=== PATIENT | female | born 1945 | race Caucasian/White ===

== ENCOUNTER 2023-09-09 14:54 | Outpatient (REF) | payer MEDICARE, OTHER, SELFPAY ==
--- NOTE | ~2023-09-09 | XR_ITS ---
EXAMINATION: XR HAND/WRIST, LEFT CLINICAL INFORMATION: Hand pain unspecified COMPARISON: None TECHNIQUE: PA, lateral, and oblique views of the left hand and wrist. FINDINGS: Moderate degenerative change at the first CMC. Carpal alignment normal. MCP joints intact. Mild degenerative changes second and third DIP joints. No fracture, dislocation or destructive process. XR/XR hand wrist LT IMPRESSION: Degenerative changes noted.
--- NOTE | ~2023-09-09 | XR_ITS ---
EXAMINATION: XR HAND/WRIST, RIGHT CLINICAL INFORMATION: Unspecified pain right hand COMPARISON: None TECHNIQUE: PA, lateral, and oblique views of the right hand and wrist. FINDINGS: There is moderate degenerative change observed at the first CMC joint. Carpal alignment preserved. No fracture, dislocation or destructive process. Mild degenerative change seen in the second and third DIP joints. MCP joints preserved. XR/XR hand wrist RT IMPRESSION: Degenerative change noted. No acute findings.
[2023-09-09 16:20] LABS: MANUAL DIFF FLAG NO
[2023-09-09 16:36] LABS: Basophils Absolute Auto 0.1 X10*3/uL (0.0-0.2); Eosinophils Absolute Auto 0.1 X10*3/uL (0.0-0.4); Eosinophils Percent Auto 0.9 % (0-4); Hemoglobin 13.1 g/dl (12.0-16.0); Imm Gran Abs Auto 0.09 X10*3/uL (0.00-0.03); Imm Gran Pct Auto 1.1 % (0.0-0.4); Lymphocytes Absolute Auto 1.9 X10*3/uL (1.2-4.9); Lymphocytes Percent Auto 23.7 % (20-40); Mean Corpuscular HGB Conc 34.5 g/dl (31.0-35.0); Mean Corpuscular Hemoglobin 31.8 pg (27.0-33.0); Mean Corpuscular Volume 92.2 fL (80.0-98.0); Mean Platelet Volume 8.9 fL (9.4-12.3); Monocytes Absolute Auto 0.5 X10*3/uL (0.1-1.2); Monocytes Percent Auto 6.1 % (2-11); Neutrophils Absolute Auto 5.4 x10*3/uL (2.0-8.3); Neutrophils Percent Auto 67.2 % (45-73); Platelet Count 239 X10*3/uL (160-400); Red Blood Count 4.12 X10*6/uL (4.20-5.50); Red Cell Distribution Width 13.1 % (11.0-16.0); White Blood Count 8.1 X10*3/uL (4.8-10.8)
[2023-09-09 17:01] LABS: Rheumatoid Factor < 13.0 IU/mL (<15.0)
[2023-09-09 17:03] LABS: Alanine Aminotransferase 16 U/L (0-31); Albumin Level 4.5 g/dL (3.5-5.0); Alkaline Phosphatase 61 U/L (39-117); Anion Gap 15 (12-20); Aspartate Amino Transferase 17 U/L (5-31); Bilirubin Total 1.3 mg/dL (0.0-1.0); Blood Urea Nitrogen 17 mg/dL (9-16); Calcium 10.3 mg/dL (8.4-10.2); Carbon Dioxide 26 mmol/L (22-29); Chloride 105 mmol/L (96-108); Estimated Glomerular Filt Rate > 60; Glucose Random 109 mg/dL (60-115); Potassium 3.9 mmol/L (3.3-5.1); Sodium 142 mmol/L (135-145); Total Protein 7.6 g/dL (6.5-8.0)
[2023-09-09 17:25] LABS: Erythrocyte Sedimentation Rate 22 MM/HR (0-20)
[2023-09-09 18:14] LABS: Appearance Urine Clear; Color Urine Yellow; Glucose Urine UA Negative (Negative); Leukocyte Esterase Urine Trace (Negative); Nitrite Urine Negative (Negative); UMIC TRIGGER UA YES; Urine Blood Negative (Negative); Urine Ketones Negative (Negative); Urine Protein Negative (Neg-Trace)
[2023-09-09 18:20] LABS: Bacteria Urine None Seen (None Seen); Hyaline Casts Urine 0-2 /LPF (0-2); RBC Urine 0-2 /HPF (0-2); Squamous Epithelial Cell Urine 0-2 /HPF (0-2); WBC Urine 0-5 /HPF (0-5)
[2023-09-09 18:36] LABS: Total Protein Urine Random < 7 mg/dL (<12)
[2023-09-10 09:13] LABS: HBc Num1 0.06 S/CO (0.00-0.79); Hepatitis A Antibody IgM 0.16 Index (0-0.79); Hepatitis B Core Antibody Nonreactive (Nonreactive); Hepatitis B Surface Antigen Negative (Negative); ~HepC Num1 0.07 S/CO (0.00-0.79); ~Hepatitis A Antibody IgM Nonreactive (Nonreactive); ~Hepatitis B Surface Antibody NONREACTIVE (Nonreactive); ~Hepatitis C Antibody Nonreactive (Nonreactive)
[2023-09-10 13:43] LABS: IgA 206 mg/dL (70-320); IgG 810 mg/dL (600-1540); IgM 65 mg/dL (50-300)
[2023-09-10 13:52] LABS: Cyclic Citrullinated Peptide <16 UNITS
[2023-09-10 16:19] LABS: Complement C3 144 mg/dL (83-193)
[2023-09-10 20:48] LABS: Anti DNA DS Antibody 1 IU/mL; Antibody to SS-A Antigen <1.0 NEG AI (<1.0 NEG); Antibody to SS-B Antigen <1.0 NEG AI (<1.0 NEG); Myeloperoxidase Antibody <1.0 AI; Proteinase 3 PR3 Antibodies <1.0 AI; SM/Ribonucleoprotein Ab <1.0 NEG AI (<1.0 NEG); Smith Protein <1.0 NEG AI (<1.0 NEG)
[2023-09-10 21:03] LABS: Prot Elec - Albumin 4.2 g/dL (3.8-4.8); Prot Elec - Alpha1 0.4 g/dL (0.2-0.3); Prot Elec - Alpha2 0.7 g/dL (0.5-0.9); Prot Elec - Beta 1 0.5 g/dL (0.4-0.6); Prot Elec - Beta 2 0.4 g/dL (0.2-0.5); Prot Elec - Gamma 0.7 g/dL (0.8-1.7); Prot Elec - Total Protein 6.8 g/dL (6.1-8.1)
[2023-09-12 05:33] LABS: TS Negative Control Passed; TS Panel A 0; TS Panel B 0; TS Positive Control Passed; TSpotTB Negative (Negative)
[2023-09-14 15:03] LABS: DNAds, Crithidia Antibody Negative (Negative)
[2023-09-15 11:23] LABS: Anti Nuclear Antibody Screen POSITIVE (NEGATIVE)
[2023-09-15 11:24] LABS: Anti Nuclear Antibody Pattern Nuclear, Homogeneous
== END 2023-09-09 14:55 | disposition home or self-care (01) ==
LOC: HO.LAB 14:54
PROVIDERS: PCP Family Medicine; Visit Provider Student in an Organized Health Care Education/Training Program
DX: Z11.59 Encounter for screening for other viral diseases (principal); Z11.7 Encounter for testing for latent tuberculosis infection; I77.6 Arteritis, unspecified; M32.9 Systemic lupus erythematosus, unspecified; M06.9 Rheumatoid arthritis, unspecified; M35.3 Polymyalgia rheumatica; Z72.89 Other problems related to lifestyle
CPT/HCPCS: 36415; 73110; 73130; 80053; 81001; 82550; 82570; 82784; 84156; 84165; 85025; 85652; 86021; 86038; 86039; 86140; 86160; 86200; 86225; 86235; 86255; 86334; 86431; 86481; 86704; 86706; 86709; 86803; 87340; 99202

== ENCOUNTER 2023-09-09 14:54 | Outpatient (AMB) | payer MEDICARE, OTHER, SELFPAY ==
--- NOTE | 2023-09-09 15:02 | A.OFFVIS_ITS ---
Intake Vital Signs 09/09/23 15:06 Height 5 ft 4 in Weight 166 lb 0.129 oz BMI 28.5 BP 124/80 Blood Pressure Location Rt brachial Position Sitting Pulse 75 Pulse Source Pulse Oximeter Intake Visit Reasons: PMR Intake Note: New pt presents today for PMR consult, referred by PCP Dean Osei. C/o pain in multiple areas. Pain started at the end of June. She was seen at the emergency room [facility] in [place]. She was started on taper and is now on 10mg daily and states it is not doing much for her pain. Campus Ambassador Required: No Accompanied by: Self / Same As Patient Allergies penicillin G Allergy (Unknown, Verified 09/09/23 15:10) Hives seafood Allergy (Unknown, Verified 09/09/23 15:10) Unknown shellfish derived Allergy (Unknown, Verified 09/09/23 15:10) swelling,itch vancomycin Allergy (Unknown, Verified 09/09/23 15:10) facial redness Medication List - Last Reconciled 09/09/23 by Carter Morelos MD metformin 500 mg PO BID olmesartan 40 mg PO DAILY prednisone 10 mg PO DAILY rosuvastatin 10 mg PO BEDTIME HPI HPI Comments History of Present Illness Details This is a 78-year-old female who presents for evaluation of PMR. Towards the end of June of 2023 patient was in [place]. She felt abrupt onset of neck stiffness as well as bilateral shoulder and thigh stiffness. She could barely lift her hands above her waist. She went to the emergency room in [place], she was found to have mildly elevated CRP. Urinalysis was suggestive of a UTI and she was discharged on antibiotics for UTI and short prednisone taper. She stated that she felt great after taking the prednisone. Her symptoms recurred a few weeks later and she went to the emergency room and at that time she was given a higher dose and longer course of prednisone. Prednisone ran out for about a week until she was evaluated by her PCP 2 days ago and started on prednisone 10 mg daily for presumed PMR. Currently she is feeling well but continues to have bilateral shoulder stiffness. She has generalized morning stiffness lasting 1 hour improved with walking around. She denies any joint swelling. Denies any headaches, jaw claudication, blurry vision. Denies any skin rashes. Denies any weight loss or fevers. She is anjali ahmadi of any family history of an autoimmune rheumatic disease. [facility] Medical History Tenosynovitis of hand Myalgia Impaired fasting glucose Hyperlipidemia, unspecified Hx: UTI (urinary tract infection) Hx of pulmonary valve stenosis Glaucoma Gilbert syndrome Fracture of toe of left foot Type 2 diabetes mellitus without complication Benign essential hypertension Atypical ductal hyperplasia of right breast Surgical History Hx of cholecystectomy H/O: hysterectomy History of colonoscopy Family History Mother Coronary artery disease Father Cancer of lung Social History Household Members: Spouse Alcohol intake: current Alcohol intake frequency: holidays/special occasions only Patient Tobacco Use Status: Former Tobacco user Quit Date: before 1979 e-Cigarette/Vaping Use: Never Used Female Reproductive History Menstrual Total pregnancies: 3 Number of Living Children: 3 Ab induced: 0 Ab spontaneous: 0 Review of Systems Const Denies fever(s), Denies headache(s), Reports weakness and Denies weight loss Eyes Denies blurry vision ENT Denies headache(s) Card Reports no additional complaints Resp Reports no additional complaints GI Denies abdominal pain Musc Reports arthralgias, Reports limited range of motion and Reports stiffness Neuro Denies headache(s) and Reports weakness Physical Exam Vital Signs: Last Vital Signs Pulse 75 09/09/23 15:06 BP 124/80 09/09/23 15:06 BMI result Body Mass Index 28.5 Const General: cooperative, healthy appearing and comfortable Nutritional Appearance: overweight Orientation/consciousness: patient oriented x3 Limitations: no limitations HEENT Head: Yes normocephalic and Yes atraumatic Mouth: moist mucous membranes Resp Effort & Inspection: normal respiratory effort and able to speak in complete sentences Auscultation: clear to auscultation bilaterally Cardio Rate: regular rate GI Inspection: No distended Palpation (GI): Soft to palpation and nontender Skin General skin exam: no rashes or lesions noted Neuro General: patient oriented x3 Extrem Other: Osteoarthritic changes of both hands with no active synovitis Pain and stiffness with shoulder abduction, more pronounced on the right Positive empty can test on the right Negative Speed's test on the right Positive lift-off test on the right Negative infraspinatus test bilaterally Normal nailfold capillaroscopy Right buttock uncomfortable with right hip manipulation No knee swelling, tenderness or pain with full flexion and extension bilaterally Results Reviewed Results Reviewed: Labs 07/2023 ESR 24 CRP 1.3 (elevated) CPK normal Assessment & Plan Assessment & Plan (1) Polymyalgia rheumatica: Code(s): M35.3 - Polymyalgia rheumatica Plan: This is a 78-year-old female who presents for evaluation of what is presumed to be polymyalgia rheumatica. Abrupt onset of neck, bilateral shoulders, bilateral hip stiffness and pain, labs showed mildly elevated CRP with normal ESR and symptoms improve with prednisone. Will order comprehensive serology to screen for any other underlying autoimmune rheumatic disease. Check bilateral shoulder x-rays. Continue with prednisone 10 mg daily Follow-up in 3 weeks Plan I spent 46 minutes reviewing patient's chart, reviewing labs from [facility], PCP chart, evaluating patient, ordering diagnostic workup, counseling patient and documenting in the chart Orders: Orders T Spot TB Today Z11.7 - Encounter for testing for latent tuberculosis infection ANCA Vasculitides Today I77.6 - Arteritis, unspecified Rheumatoid Factor Today M06.9 - Rheumatoid arthritis, unspecified Anti DNA DS Antibody Today M32.9 - Systemic lupus erythematosus, unspecified Complement C3 Today M32.9 - Systemic lupus erythematosus, unspecified Complement C4 Today M32.9 - Systemic lupus erythematosus, unspecified Sjogren's Antibodies Today M32.9 - Systemic lupus erythematosus, unspecified DNA Double Stranded-Crithidia Today M32.9 - Systemic lupus erythematosus, unspecified Complete Blood Count Auto Diff Today I77.6 - Arteritis, unspecified Comprehensive Met. Panel Today I77.6 - Arteritis, unspecified C Reactive Protein Today I77.6 - Arteritis, unspecified Erythrocyte Sedimentation Rate Today I77.6 - Arteritis, unspecified Hepatitis A,B,C Profile Today Z11.59 - Encounter for screening for other viral diseases Immunofixation Pnl, Serum Today I77.6 - Arteritis, unspecified Protein Electrophoresis, Serum Today I77.6 - Arteritis, unspecified Creatine Kinase Total Today I77.6 - Arteritis, unspecified Cyclic Citrullinated Peptide Today M06.9 - Rheumatoid arthritis, unspecified ROBERT Reflex Titer and Pattern Today M32.9 - Systemic lupus erythematosus, unspecified Anti Extractable Nuclear Ag Today M32.9 - Systemic lupus erythematosus, unspecified Protein Creatinine Ratio, Ur Today M32.9 - Systemic lupus erythematosus, unspecified UA w Microscopic Today M32.9 - Systemic lupus erythematosus, unspecified XR hand wrist LT Today M25.50 - Pain in unspecified joint XR hand wrist RT Today M25.50 - Pain in unspecified joint Coding Level of Care Code New Pt Level 4 (79072) Diagnoses Polymyalgia rheumatica M35.3
[2023-09-09 15:06] VITALS: BP 124/80; PULSE 75; BMI 28.5
== END 2023-09-09 15:51 | disposition home or self-care (01) ==
PROVIDERS: PCP Family Medicine; Visit Provider Student in an Organized Health Care Education/Training Program
DX: M35.3 Polymyalgia rheumatica (principal)
CPT/HCPCS: 99204

== ENCOUNTER 2023-09-30 11:35 | Outpatient (AMB) | payer MEDICARE, OTHER, SELFPAY ==
[2023-09-30 11:36] VITALS: BP 114/68; PULSE 82; O2SAT 96; BMI 28.8
--- NOTE | 2023-09-30 11:36 | MHC.OFFVIS ---
Intake Vital Signs 09/30/23 11:36 Height 5 ft 4 in Weight 167 lb 8.821 oz BMI 28.8 BP 114/68 Blood Pressure Location Rt brachial Position Sitting Pulse 82 Pulse Source Pulse Oximeter Pulse Oximetry (%) 96 Oxygen Delivery Method Room Air Intake Visit Reasons: PMR Intake Note: Patient last seen 09/09/23 presents today for follow up and test results. Feels better with prednisone 10mg prescribed by pcp Hand Router Operator Required: No Accompanied by: Self / Same As Patient Allergies penicillin G Allergy (Unknown, Verified 09/30/23 11:40) Hives seafood Allergy (Unknown, Verified 09/30/23 11:40) Unknown shellfish derived Allergy (Unknown, Verified 09/30/23 11:40) swelling,itch vancomycin Allergy (Unknown, Verified 09/30/23 11:40) facial redness Medication List - Last Reconciled 09/30/23 by Carter Morelos MD metformin ER 500 mg PO DAILY olmesartan 40 mg PO DAILY prednisone 5 mg PO DAILY prednisone Combine with prednisone 5 mg tabs. Take 4 tabs daily for 3 weeks (total 9 mg daily) Three tabs daily for 3 weeks (total 8 mg) Two tabs daily for 3 weeks (total 7 mg) rosuvastatin 10 mg PO BEDTIME HPI HPI Comments History of Present Illness Details 78-year-old female with presumed PMR returns for follow-up. She has been on prednisone 10 mg daily for the last 2-3 weeks with significant improvement. Except for mild right shoulder pain and stiffness. She has been eating more and gained a couple of lb. She is doing well otherwise. She states that she gets intermittent pain in her right hand but no swelling. Initial history: This is a 78-year-old female who presents for evaluation of PMR. Towards the end of June of 2023 patient was in [place]. She felt abrupt onset of neck stiffness as well as bilateral shoulder and thigh stiffness. She could barely lift her hands above her waist. She went to the emergency room in [place], she was found to have mildly elevated CRP. Urinalysis was suggestive of a UTI and she was discharged on antibiotics for UTI and short prednisone taper. She stated that she felt great after taking the prednisone. Her symptoms recurred a few weeks later and she went to the emergency room and at that time she was given a higher dose and longer course of prednisone. Prednisone ran out for about a week until she was evaluated by her PCP 2 days ago and started on prednisone 10 mg daily for presumed PMR. Currently she is feeling well but continues to have bilateral shoulder stiffness. She has generalized morning stiffness lasting 1 hour improved with walking around. She denies any joint swelling. Denies any headaches, jaw claudication, blurry vision. Denies any skin rashes. Denies any weight loss or fevers. She is unaware of any family history of an autoimmune rheumatic disease. [facility] Medical History Tenosynovitis of hand Myalgia Impaired fasting glucose Hyperlipidemia, unspecified Hx: UTI (urinary tract infection) Hx of pulmonary valve stenosis Glaucoma Gilbert syndrome Fracture of toe of left foot Type 2 diabetes mellitus without complication Benign essential hypertension Atypical ductal hyperplasia of right breast Surgical History Hx of cholecystectomy H/O: hysterectomy History of colonoscopy Family History Mother Coronary artery disease Father Cancer of lung Social History Household Members: Spouse Alcohol intake: current Alcohol intake frequency: holidays/special occasions only Patient Tobacco Use Status: Former Tobacco user Quit Date: before 1979 e-Cigarette/Vaping Use: Never Used Review of Systems [facility] Reports arthralgias Physical Exam Vital Signs: Last Vital Signs Pulse 82 09/30/23 11:36 BP 114/68 09/30/23 11:36 Pulse Ox 96 09/30/23 11:36 Oxygen Delivery Method Room Air 09/30/23 11:36 BMI result Body Mass Index 28.8 Const General: cooperative, healthy appearing and comfortable Nutritional Appearance: overweight Orientation/consciousness: patient oriented x3 Limitations: no limitations HEENT Head: Yes normocephalic and Yes atraumatic Resp Effort & Inspection: normal respiratory effort and able to speak in complete sentences Cardio Rate: regular rate GI Inspection: No distended Palpation (GI): Soft to palpation and nontender Skin General skin exam: no rashes or lesions noted Neuro General: patient oriented x3 Extrem Other: Osteoarthritic changes of both hands with no active synovitis Normal range of motion of both hands, elbows and wrists without pain Normal range of motion of both shoulders without pain Negative rotator cuff provocative maneuvers bilaterally Normal nailfold capillaroscopy Results Reviewed Results Reviewed: Labs 07/2023 ESR 24 CRP 1.3 (elevated) CPK normal Assessment & Plan Assessment & Plan (1) Polymyalgia rheumatica: Code(s): M35.3 - Polymyalgia rheumatica Plan: This is a 78-year-old female who presents for evaluation of what is presumed to be polymyalgia rheumatica. Abrupt onset of neck, bilateral shoulders, bilateral hip stiffness and pain, labs showed mildly elevated CRP with normal ESR and symptoms improve with prednisone. Clinically patient's symptoms are more consistent with PMR especially with abrupt onset of bilateral shoulder stiffness and improvement with prednisone, labs showed a positive ROBERT and borderline elevated ESR and CRP. Inflammatory markers generally much more elevated at onset of PMR. Patient states that she gets intermittent right hand pain. For now we will have this as PMR however patient might evolve into seronegative RA. She is doing quite well on prednisone 10 mg daily. Will lower prednisone by 1 mg every 3 weeks. Labs before next visit in 9 weeks Plan I spent 22 minutes reviewing patient's chart, evaluating patient, ordering diagnostic workup, counseling patient and documenting in the chart Orders: Orders Complete Blood Count Auto Diff 9 Weeks M35.3 - Polymyalgia rheumatica Comprehensive Met. Panel 9 Weeks M35.3 - Polymyalgia rheumatica Erythrocyte Sedimentation Rate 9 Weeks M35.3 - Polymyalgia rheumatica C Reactive Protein 9 Weeks M35.3 - Polymyalgia rheumatica Medications: New prednisone 5 mg PO DAILY 90 tabs 0RF prednisone Combine with prednisone 5 mg tabs. Take 4 tabs daily for 3 weeks (total 9 mg daily) Three tabs daily for 3 weeks (total 8 mg) Two tabs daily for 3 weeks (total 7 mg) 189 tabs 0RF Coding Level of Care Code Est Pt Level 3 (44991) Diagnoses Polymyalgia rheumatica M35.3
== END 2023-09-30 11:58 | disposition home or self-care (01) ==
PROVIDERS: PCP Family Medicine; Visit Provider Student in an Organized Health Care Education/Training Program
DX: M35.3 Polymyalgia rheumatica (principal)
CPT/HCPCS: 99213

== ENCOUNTER → 2023-09-30 11:35 | Outpatient (BNVA) | payer MEDICARE, OTHER, SELFPAY | PROVIDERS: PCP Family Medicine; Visit Provider Student in an Organized Health Care Education/Training Program | DX: M35.3 Polymyalgia rheumatica (principal); Z79.52 Long term (current) use of systemic steroids | CPT/HCPCS: 99212 ==

== ENCOUNTER 2023-12-30 11:33 | Outpatient (AMB) | payer MEDICARE, OTHER, SELFPAY ==
--- NOTE | 2023-12-30 11:38 | A.OFFVIS_ITS ---
Vital Signs 12/30/23 11:47 Height 5 ft 4 in Weight 167 lb 12.348 oz BMI 28.8 BP 132/70 Blood Pressure Location Lt brachial Position Sitting Pulse 70 Pulse Source Pulse Oximeter Pulse Oximetry (%) 97 Oxygen Delivery Method Room Air Intake Visit Reasons: PMR/RA/CM Intake Note: Patient presents for PMR/RA. Allergies penicillin G Allergy (Unknown, Verified 12/30/23 11:46) Hives seafood Allergy (Unknown, Verified 12/30/23 11:46) Unknown shellfish derived Allergy (Unknown, Verified 12/30/23 11:46) swelling,itch vancomycin Allergy (Unknown, Verified 12/30/23 11:46) facial redness Medication List - Last Reconciled 12/30/23 by Carter Morelos MD metformin ER 500 mg PO DAILY olmesartan 40 mg PO DAILY prednisone 4 tabs daily for 2 weeks then 3 tabs daily for 2 weeks, 2 tabs daily for 2 weeks, then 1 tab daily for 2 weeks then stop rosuvastatin 10 mg PO BEDTIME HPI Comments Details: 78-year-old female with presumed PMR returns for follow-up. Has been tapering her prednisone by 1 mg every 3 weeks or so. She has been taking prednisone 5 mg daily for the last 2-3 weeks. She states that she feels very well overall with no joint pain stiffness or swelling. Steroid side effects such as hunger improved since prednisone was lowered to 5 mg Initial history: This is a 78-year-old female who presents for evaluation of PMR . Towards the end of June of 2023 patient was in [place]. She felt abrupt onset of neck stiffness as well as bilateral shoulder and thigh stiffness. She could barely lift her hands above her waist. She went to the emergency room in [place], she was found to have mildly elevated CRP. Urinalysis was suggestive of a UTI and she was discharged on antibiotics for UTI and short prednisone taper. She stated that she felt great after taking the prednisone. Her symptoms recurred a few weeks later and she went to the emergency room and at that time she was given a higher dose and longer course of prednisone. Prednisone ran out for about a week until she was evaluated by her PCP 2 days ago and started on prednisone 10 mg daily for presumed PMR. Currently she is feeling well but continues to have bilateral shoulder stiffness. She has generalized morning stiffness lasting 1 hour improved with walking around. She denies any joint swelling. Denies any headaches, jaw claudication, blurry vision. Denies any skin rashes. Denies any weight loss or fevers. She is unaware of any family history of an autoimmune rheumatic disease. [facility] Medical History Tenosynovitis of hand Myalgia Impaired fasting glucose Hyperlipidemia, unspecified Hx: UTI (urinary tract infection) Hx of pulmonary valve stenosis Glaucoma Gilbert syndrome Fracture of toe of left foot Type 2 diabetes mellitus without complication Benign essential hypertension Atypical ductal hyperplasia of right breast Surgical History Hx of cholecystectomy H/O: hysterectomy History of colonoscopy Family History Mother Coronary artery disease Father Cancer of lung Social History Household Members: Spouse Alcohol intake: current Alcohol intake frequency: holidays/special occasions only Patient Tobacco Use Status: Former Tobacco user e-Cigarette/Vaping Use: Never Used Female Reproductive History Menstrual Total pregnancies: 3 Number of Living Children: 3 Ab induced: 0 Ab spontaneous: 0 Review of Systems Musc Denies arthralgias, Denies joint swelling and Denies stiffness Physical Exam Vital Signs: Last Vital Signs Pulse 70 12/30/23 11:47 BP 132/70 12/30/23 11:47 Pulse Ox 97 12/30/23 11:47 Oxygen Delivery Method Room Air 12/30/23 11:47 BMI result Body Mass Index 28.8 Const General: cooperative, healthy appearing and comfortable Nutritional Appearance: overweight Orientation/consciousness: patient oriented x3 Limitations: no limitations HEENT Head: Yes normocephalic and Yes atraumatic Resp Effort & Inspection: normal respiratory effort and able to speak in complete sentences Cardio Rate: regular rate GI Inspection: No distended Palpation (GI): Soft to palpation and nontender Skin General skin exam: no rashes or lesions noted Neuro General: patient oriented x3 Extrem Other: Osteoarthritic changes of both hands with no active synovitis Normal range of motion of both hands, elbows and wrists without pain Normal range of motion of both shoulders without pain Negative rotator cuff provocative maneuvers bilaterally Normal nailfold capillaroscopy No hip pain with manipulation bilaterally Results Reviewed Results Reviewed: Labs 07/2023 ESR 24 CRP 1.3 (elevated) CPK normal Assessment & Plan Assessment & Plan (1) Polymyalgia rheumatica: Code(s): M35.3 - Polymyalgia rheumatica Category: Medical Plan: This is a 78-year-old female who presents for evaluation of what is presumed to be polymyalgia rheumatica. Abrupt onset of neck, bilateral shoulders, bilateral hip stiffness and pain, labs showed mildly elevated CRP with normal ESR and symptoms improve with prednisone. Clinically patient's symptoms are more consistent with PMR especially with abrupt onset of bilateral shoulder stiffness and improvement with prednisone, labs showed a positive ROBERT and borderline elevated ESR and CRP. Inflammatory markers generally much more elevated at onset of PMR. Patient states that she gets intermittent right hand pain. For now we will have this as PMR however patient might evolve into seronegative RA/UCTD She has been doing well with no recurrence of symptoms on tapering the prednisone. She is currently on 5 mg daily. Will lower prednisone by 1 mg juancarlos ry 2 weeks. Prednisone should be tapered off by next visit in 8 weeks Labs before next visit in 8 weeks Plan I spent 22 minutes reviewing patient's chart, evaluating patient, ordering diagnostic workup, counseling patient and documenting in the chart Orders: Orders Complete Blood Count Auto Diff 8 Weeks M35.3 - Polymyalgia rheumatica Comprehensive Met. Panel 8 Weeks M35.3 - Polymyalgia rheumatica C Reactive Protein 8 Weeks M35.3 - Polymyalgia rheumatica Erythrocyte Sedimentation Rate 8 Weeks M35.3 - Polymyalgia rheumatica Medications: Changed From prednisone orally; Combine with prednisone 5 mg tabs. Take 2 tabs daily for 3 weeks (total 7 mg daily) 1 tabs daily for 3 weeks (total 6 mg) then stop should be on (5 mg tab for 3 weeks) 63 tabs 0RF To prednisone 4 tabs daily for 2 weeks then 3 tabs daily for 2 weeks, 2 tabs daily for 2 weeks, then 1 tab daily for 2 weeks then stop 140 tabs 0RF Discontinued prednisone Discontinued Reason: Patient Completed Course 5 mg PO DAILY 90 tabs 0RF Coding Level of Care Code Est Pt Level 4 (45860) Diagnoses Polymyalgia rheumatica M35.3
[2023-12-30 11:47] VITALS: BP 132/70; PULSE 70; O2SAT 97; BMI 28.8
== END 2023-12-30 12:03 | disposition home or self-care (01) ==
PROVIDERS: PCP Family Medicine; Visit Provider Student in an Organized Health Care Education/Training Program
DX: M35.3 Polymyalgia rheumatica (principal)
CPT/HCPCS: 99214

== ENCOUNTER → 2023-12-30 11:33 | Outpatient (BNVA) | payer MEDICARE, OTHER, SELFPAY | PROVIDERS: PCP Family Medicine; Visit Provider Student in an Organized Health Care Education/Training Program | DX: M35.3 Polymyalgia rheumatica (principal) | CPT/HCPCS: 99212 ==

== ENCOUNTER 2024-02-24 11:57 | Outpatient (REF) | payer MEDICARE, OTHER, SELFPAY ==
[2024-02-24 14:42] LABS: MANUAL DIFF FLAG NO
[2024-02-24 14:47] LABS: Basophils Absolute Auto 0.1 X10*3/uL (0.0-0.2); Basophils Percent Auto 1.4 % (0-2); Eosinophils Absolute Auto 0.1 X10*3/uL (0.0-0.4); Hematocrit 38.1 % (37.0-47.0); Hemoglobin 12.9 g/dl (12.0-16.0); Imm Gran Abs Auto 0.03 X10*3/uL (0.00-0.03); Imm Gran Pct Auto 0.4 % (0.0-0.4); Lymphocytes Absolute Auto 2.5 X10*3/uL (1.2-4.9); Lymphocytes Percent Auto 35.6 % (20-40); Mean Corpuscular HGB Conc 33.9 g/dl (31.0-35.0); Mean Corpuscular Hemoglobin 31.5 pg (27.0-33.0); Mean Corpuscular Volume 92.9 fL (80.0-98.0); Mean Platelet Volume 9.7 fL (9.4-12.3); Monocytes Absolute Auto 0.5 X10*3/uL (0.1-1.2); Monocytes Percent Auto 7.1 % (2-11); Neutrophils Absolute Auto 3.8 x10*3/uL (2.0-8.3); Neutrophils Percent Auto 53.5 % (45-73); Platelet Count 215 X10*3/uL (160-400); Red Cell Distribution Width 12.5 % (11.0-16.0); White Blood Count 7.1 X10*3/uL (4.8-10.8)
[2024-02-24 14:55] LABS: Alanine Aminotransferase 12 U/L (0-31); Albumin Level 4.4 g/dL (3.5-5.0); Alkaline Phosphatase 46 U/L (39-117); Anion Gap 12 (12-20); Aspartate Amino Transferase 19 U/L (5-31); Bilirubin Total 1.6 mg/dL (0.0-1.0); Blood Urea Nitrogen 18 mg/dL (9-16); C Reactive Protein 0.19 mg/dL (< or = 0.50); Calcium 9.8 mg/dL (8.4-10.2); Carbon Dioxide 26 mmol/L (22-29); Chloride 107 mmol/L (96-108); Estimated Glomerular Filt Rate 59; Glucose Random 107 mg/dL (60-115); Potassium 4.2 mmol/L (3.3-5.1); Sodium 141 mmol/L (135-145); Total Protein 7.1 g/dL (6.5-8.0)
[2024-02-24 15:47] LABS: Erythrocyte Sedimentation Rate 10 MM/HR (0-20)
== END 2024-02-24 11:58 | disposition home or self-care (01) ==
LOC: HO.WFDLDS 11:57
PROVIDERS: Visit Provider Student in an Organized Health Care Education/Training Program
DX: M35.3 Polymyalgia rheumatica (principal)
CPT/HCPCS: 36415; 80053; 85025; 85652; 86140

== ENCOUNTER 2024-02-29 11:24 | Outpatient (AMB) | payer MEDICARE, OTHER, SELFPAY ==
--- NOTE | 2024-02-29 11:37 | MHC.OFFVIS ---
Vital Signs 02/29/24 11:41 Height 5 ft 4 in Weight 167 lb 12.348 oz BMI 28.8 BP 124/62 Blood Pressure Location Lt brachial Position Sitting Pulse 65 Pulse Source Pulse Oximeter Pulse Oximetry (%) 98 Oxygen Delivery Method Room Air Intake Visit Reasons: PMR/RA Intake Note: Presents for PMR/RA. Allergies penicillin G Allergy (Unknown, Verified 02/29/24 11:41) Hives seafood Allergy (Unknown, Verified 02/29/24 11:41) Unknown shellfish derived Allergy (Unknown, Verified 02/29/24 11:41) swelling,itch vancomycin Allergy (Unknown, Verified 02/29/24 11:41) facial redness Medication List - Last Reconciled 02/29/24 by Carter Morelos MD metformin ER 500 mg PO DAILY olmesartan 40 mg PO DAILY rosuvastatin 10 mg PO BEDTIME HPI Comments Details: 78-year-old female with presumed PMR returns for follow-up. She has been tapering her prednisone slowly. She has been doing very well until Wednesday. She has been taking prednisone 1 mg daily, she discontinued prednisone last Wednesday. Since then she has been having bilateral shoulder pain and stiffness, neck pain and bilateral trochanteric bursitis pain. She states that she has had bilateral trochanteric bursitis for years. She has had injections in the past. The most recent injection was about 5 years ago Initial history: This is a 78-year-old female who presents for evaluation of PMR. Towards the end of June of 2023 patient was in [place]. She felt abrupt onset of neck stiffness as well as bilateral shoulder and thigh stiffness. She could barely lift her hands above her waist. She went to the emergency room in [place], she was found to have mildly elevated CRP. Urinalysis was suggestive of a UTI and she was discharged on antibiotics for UTI and short prednisone taper. She stated that she felt great after taking the prednisone. Her symptoms recurred a few weeks later and she went to the emergency room and at that time she was given a higher dose and longer course of prednisone. Prednisone ran out for about a week until she was evaluated by her PCP 2 days ago and started on prednisone 10 mg daily for presumed PMR. Currently she is feeling well but continues to have bilateral shoulder stiffness. She has generalized morning stiffness lasting 1 hour improved with walking around. She denies any joint swelling. Denies any headaches, jaw claudication, blurry vision. Denies any skin rashes. Denies any weight loss or fevers. She is unaware of any family history of an autoimmune rheumatic disease. [facility] Medical History Tenosynovitis of hand Myalgia Impaired fasting glucose Hyperlipidemia, unspecified Hx: UTI (urinary tract infection) Hx of pulmonary valve stenosis Glaucoma Gilbert syndrome Fracture of toe of left foot Type 2 diabetes mellitus without complication Benign essential hypertension Atypical ductal hyperplasia of right breast Surgical History Hx of cholecystectomy H/O: hysterectomy History of colonoscopy Family History Mother Coronary artery disease Father Cancer of lung Social History Household Members: Spouse Alcohol intake: current Alcohol intake frequency: holidays/special occasions only Patient Tobacco Use Status: Former Tobacco user e-Cigarette/Vaping Use: Never Used Female Reproductive History Menstrual Total pregnancies: 3 Number of Living Children: 3 Ab induced: 0 Ab spontaneous: 0 Review of Systems Musc Reports arthralgias, Reports limited range of motion and Reports stiffness Physical Exam Vital Signs: Last Vital Signs Pulse 65 02/29/24 11:41 BP 124/62 02/29/24 11:41 Pulse Ox 98 02/29/24 11:41 Oxygen Delivery Method Room Air 02/29/24 11:41 BMI result Body Mass Index 28.8 Const General: cooperative, healthy appearing and comfortable Nutritional Appearance: overweight Orientation/consciousness: patient oriented x3 Limitations: no limitations HEENT Head: Yes normocephalic and Yes atraumatic Resp Effort & Inspection: normal respiratory effort and able to speak in complete sentences Cardio Rate: regular rate GI Inspection: No distended Palpation (GI): Soft to palpation and nontender Skin General skin exam: no rashes or lesions noted Neuro General: patient oriented x3 Extrem Other: Neck pain with rotation to both sides Osteoarthritic changes of both hands with no active synovitis Normal range of motion of both hands, elbows and wrists without pain Able to fully abduct her shoulders but with some stiffness towards the end Positive empty can test and Speed's test on the right Bilateral trochanteric bursa area tenderness with negative Madhu's test Normal nailfold capillaroscopy No hip pain with manipulation bilaterally Office Procedures Joint Injection/Aspiration Joint Injection/Aspiration Details: Right trochanteric bursa Left trochanteric bursa Prep: site was prepped using sterile technique and ethochloride spray was applied Injected: 40 mg of, Kenalog, with 1 mL of and 1% plain lidocaine Approach Used: other Procedure: The patient tolerated the procedure well Coding Details: With the patient's consent, the left lateral hip area was prepped with for Chloraprep. Under a topical ethyl chloride spray the tender area over the trochanteric region was injected with 40 mg of Kenalog and 1 cc of 1% lidocaine. Then the right lateral hip area was prepped with Chloraprep and alcohol. Under a topical ethyl chloride spray the tender area over the trochanteric region was injected with 40 mg of Kenalog and 2 cc of 1% lidocaine. The patient tolerated both procedures well with no apparent immediate adverse events. - Glenohumeral/Tronchanteric Bursa/Intraarticular (X2) Procedure code (CPT) selection complete ( X2 ) Results Reviewed Results Reviewed: Labs 07/2023 ESR 24 CRP 1.3 (elevated) CPK normal Assessment & Plan Assessment & Plan (1) Polymyalgia rheumatica: Code(s): M35.3 - Polymyalgia rheumatica Category: Medical Plan: This is a 78-year-old female who presents for evaluation of what is presumed to be polymyalgia rheumatica. Abrupt onset of neck, bilateral shoulders, bilateral hip stiffness and pain, labs showed mildly elevated CRP with normal ESR and symptoms improve with prednisone. Patient has been tapering down her prednisone. She was doing well on 1 mg daily, she discontinued it last Wednesday and is having a flare-up affecting her neck, shoulders and bilateral trochanteric bursae. I think her clinical picture is more clear that it is PMR. Given bilateral trochanteric bursitis, patient requesting injections today. This may also control her PMR. With patient's consent, both trochanteric bursae were injected today, if there is no improvement 2 weeks. Advised patient to call the office and we will restart prednisone at 2 mg daily and do a slower taper Labs before next visit in 3 months (2) Greater trochanteric bursitis of both hips: Code(s): M70.61 - Trochanteric bursitis, right hip; M70.62 - Trochanteric bursitis, left hip Category: Medical Plan: Injected in clinic today Plan I spent 30 minutes reviewing patient's chart, evaluating patient, ordering diagnostic workup, counseling patient and documenting in the chart Orders: Orders AMB Joint Injection/Aspiration Today M70.61 - Trochanteric bursitis, right hip, M70.62 - Trochanteric bursitis, left hip Complete Blood Count Auto Diff 3 Months M35.3 - Polymyalgia rheumatica Comprehensive Met. Panel 3 Months M35.3 - Polymyalgia rheumatica C Reactive Protein 3 Months M35.3 - Polymyalgia rheumatica Erythrocyte Sedimentation Rate 3 Months M35.3 - Polymyalgia rheumatica Coding Level of Care Code Est Pt Level 4 (14792) Diagnoses Polymyalgia rheumatica M35.3 Greater trochanteric bursitis of both hips M70.61; M70.62 CPT Codes Coding - Joint 7: 49465 - Glenohumeral/Tronchanteric Bursa/Intraarticular ([id number])
[2024-02-29 11:41] VITALS: BP 124/62; PULSE 65; O2SAT 98; BMI 28.8
== END 2024-02-29 12:29 | disposition home or self-care (01) ==
PROVIDERS: PCP Family Medicine; Visit Provider Student in an Organized Health Care Education/Training Program
DX: M35.3 Polymyalgia rheumatica (principal); M70.61 Trochanteric bursitis, right hip; M70.62 Trochanteric bursitis, left hip
CPT/HCPCS: 20610; 99214

== ENCOUNTER → 2024-02-29 11:24 | Outpatient (BNVA) | payer MEDICARE, OTHER, SELFPAY | PROVIDERS: PCP Family Medicine; Visit Provider Student in an Organized Health Care Education/Training Program | DX: M70.61 Trochanteric bursitis, right hip (principal); M70.62 Trochanteric bursitis, left hip; M35.3 Polymyalgia rheumatica | CPT/HCPCS: 20610; 99212 ==

== ENCOUNTER 2024-06-01 13:10 | Outpatient (REF) | payer MEDICARE, OTHER, SELFPAY ==
--- OUTSIDE RECORDS SUMMARY | 2024-06-01 13:12 | XMS_ITS | Continuity of Care Document ---
Author Organization [facility] Address [address] [place] [address] Phone [phone] Problems Active Problems Provider Date Thyroid nodule Armand Gutierrez M.D. Onset: Pulmonary stenosis, non-rheumatic Armand sweeney M.D. Onset: 06/18/2022 Squamous cell carcinoma Armand Gutierrez M.D. On set: 06/18/2022 Essential hypertension Armand Gutierrez M.D. Ons et: 06/18/2022 Hypercholesterolemia Armand Gutierrez M.D. Onset : 06/18/2022 Social History Type Date Description Comments Sex Unknown Lives With Spouse ETOH Use Rarely consumes alcohol Tobacco Use Start: Unknown End: Unknown Patient is a former smoker Quit 1970s Allergies and adverse reactions Active Allergies Criticality Reaction Severity Comments Date Shellfish-Derived Products Unable to assess criticality 06/18/2022 Vancomycin Unable to assess criticality 06/18/2022 Penicillin Unable to assess criticality 06/18/2022 Medications Active Medications SIG Qnty Indications Ordering Provider Date Rosuvastatin [id number] Tablets Take one tablet daily Dean Osei M.D. Olmesartan [id number] Tablets Take one tablet every evening Dean Osei M.D. Clotrimazole/Betametha sone Dipropionate1-0.05% Cream Apply twice daily to affected areas as needed Sebastian David M.D. Vital Signs Date Vital Result Comment 06/18/2022 3:36pm BP Systolic 124 mmHg BP Diastolic 80 mmHg Heart Rate 74 /min Height 64 inches Weight 169.38 lb BMI (Body Mass Index) 29.1 kg/m2 Medical Devices Description No Information Available Encounters Type Date Location Provider Dx Diagnosis Office Visit 06/18/2022 3:30p Main Office Armand Gutierrez M.D. E04.1 Nontoxic single thyroid nodule E78.00 Pure hypercholestero lemia, unspecified I10 Essential (primary) hypertension Assessments Date Code Description Provider 06/18/2022 E04.1 Thyroid nodule Armand mary M.D. 06/18/2022 E78.00 Hypercholesterolemia Armand mcneill M.D. 06/18/2022 I10 Essential hypertension Armand Gutierrez M.D. Plan of Treatment No Information Available Functional Status Description No Information Available Mental Status Description No Information Available Referrals Description No Information Available
[2024-06-01 14:16] LABS: MANUAL DIFF FLAG NO
[2024-06-01 14:27] LABS: Basophils Absolute Auto 0.1 X10*3/uL (0.0-0.2); Basophils Percent Auto 1.6 % (0-2); Eosinophils Absolute Auto 0.1 X10*3/uL (0.0-0.4); Eosinophils Percent Auto 1.4 % (0-4); Hemoglobin 12.4 g/dl (12.0-16.0); Imm Gran Abs Auto 0.02 X10*3/uL (0.00-0.03); Imm Gran Pct Auto 0.3 % (0.0-0.4); Lymphocytes Absolute Auto 2.1 X10*3/uL (1.2-4.9); Lymphocytes Percent Auto 29.7 % (20-40); Mean Corpuscular HGB Conc 33.5 g/dl (31.0-35.0); Mean Corpuscular Hemoglobin 31.4 pg (27.0-33.0); Mean Corpuscular Volume 93.7 fL (80.0-98.0); Mean Platelet Volume 9.9 fL (9.4-12.3); Monocytes Absolute Auto 0.5 X10*3/uL (0.1-1.2); Monocytes Percent Auto 7.4 % (2-11); Neutrophils Absolute Auto 4.2 x10*3/uL (2.0-8.3); Neutrophils Percent Auto 59.6 % (45-73); Platelet Count 223 X10*3/uL (160-400); Red Blood Count 3.95 X10*6/uL (4.20-5.50); Red Cell Distribution Width 12.6 % (11.0-16.0)
[2024-06-01 14:47] LABS: Alanine Aminotransferase 17 U/L (0-31); Albumin Level 4.1 g/dL (3.5-5.0); Alkaline Phosphatase 46 U/L (39-117); Anion Gap 11 (12-20); Aspartate Amino Transferase 26 U/L (5-31); Bilirubin Total 1.5 mg/dL (0.0-1.0); Blood Urea Nitrogen 16 mg/dL (9-16); C Reactive Protein 0.26 mg/dL (< or = 0.50); Calcium 9.7 mg/dL (8.4-10.2); Carbon Dioxide 27 mmol/L (22-29); Chloride 108 mmol/L (96-108); Estimated Glomerular Filt Rate > 60; Glucose Random 137 mg/dL (60-115); Potassium 3.9 mmol/L (3.3-5.1); Sodium 142 mmol/L (135-145); Total Protein 6.8 g/dL (6.5-8.0)
[2024-06-01 14:49] LABS: Erythrocyte Sedimentation Rate 7 MM/HR (0-20)
== END 2024-06-01 13:11 | disposition home or self-care (01) ==
LOC: HO.WFDLDS 13:10
PROVIDERS: Visit Provider Student in an Organized Health Care Education/Training Program
DX: M35.3 Polymyalgia rheumatica (principal)
CPT/HCPCS: 36415; 80053; 85025; 85652; 86140

== ENCOUNTER 2024-06-05 13:45 | Outpatient (AMB) | payer MEDICARE, OTHER, SELFPAY ==
--- NOTE | 2024-06-05 13:49 | A.OFFVIS_ITS ---
Vital Signs 06/05/24 13:53 Height 5 ft 4 in Weight 167 lb 1.766 oz BMI 28.7 BP 124/62 Blood Pressure Location Lt brachial Position Sitting Pulse 75 Pulse Source Pulse Oximeter Pulse Oximetry (%) 97 Oxygen Delivery Method Room Air Intake Visit Reasons: PMR Intake Note: Patient presents for PMR. Allergies penicillin G Allergy (Unknown, Verified 06/05/24 13:53) Hives seafood Allergy (Unknown, Verified 06/05/24 13:53) Unknown shellfish derived Allergy (Unknown, Verified 06/05/24 13:53) swelling,itch vancomycin Allergy (Unknown, Verified 06/05/24 13:53) facial redness Medication List - Last Reconciled 06/05/24 by Carter Morelos MD metformin ER 500 mg PO DAILY olmesartan 40 mg PO DAILY prednisone Take 2 tabs daily for 1 month then 1-1/2 tabs daily for 1 month then 1 tab daily for 1 month rosuvastatin 10 mg PO BEDTIME HPI Comments Details: 79-year-old female with presumed PMR returns for follow-up. Last visit she had flared as soon prednisone 1 mg was stopped. Her main complaint at that time was bilateral trochanteric bursitis. We injected both. She states that she has been doing quite well until about a week and a half ago. Now she is having neck pain, right shoulder pain and stiffness and bilateral thigh pain achiness and stiffness. Initial history: This is a 78-year-old female who presents for evaluation of PMR. Towards the end of June of 2023 patient was in [place]. She felt abrupt onset of neck stiffness as well as bilateral shoulder and thigh stiffness. She could barely lift her hands above her waist. She went to the emergency room in [place], she was found to have mildly elevated CRP. Urinalysis was suggestive of a UTI and she was discharged on antibiotics for UTI and short prednisone taper. She stated that she felt great after taking the prednisone. Her symptoms recurred a few weeks later and she went to the emergency room and at that time she was given a higher dose and longer course of prednisone. Prednisone ran out for about a week until she was evaluated by her PCP 2 days ago and started on prednisone 10 mg daily for presumed PMR. Currently she is feeling well but continues to have bilateral shoulder stiffness. She has generalized morning stiffness lasting 1 hour improved with walking around. She denies any joint swelling. Denies any headaches, jaw claudication, blurry vision. Denies any skin rashes. Denies any weight loss or fevers. She is unaware of any family history of an autoimmune rheumatic disease. [facility] Medical History Tenosynovitis of hand Myalgia Impaired fasting glucose Hyperlipidemia, unspecified Hx: UTI (urinary tract infection) Hx of pulmonary valve stenosis Glaucoma Gilbert syndrome Fracture of toe of left foot Type 2 diabetes mellitus without complication Benign essential hypertension Atypical ductal hyperplasia of right breast Surgical History Hx of cholecystectomy H/O: hysterectomy History of colonoscopy Family History Mother Coronary artery disease Father Cancer of lung Social History Household Members: Spouse Alcohol intake: current Alcohol intake frequency: holidays/special occasions only Patient Tobacco Use Status: Former Tobacco user e-Cigarette/Vaping Use: Never Used Female Reproductive History Menstrual Total pregnancies: 3 Number of Living Children: 3 Ab induced: 0 Ab spontaneous: 0 Review of Systems Musc Reports arthralgias, Reports limited range of motion and Reports stiffness Physical Exam Vital Signs: Last Vital Signs Pulse 75 06/05/24 13:53 BP 124/62 06/05/24 13:53 Pulse Ox 97 06/05/24 13:53 Oxygen Delivery Method Room Air 06/05/24 13:53 BMI result Body Mass Index 28.7 Const General: cooperative, healthy appearing and comfortable Nutritional Appearance: overweight Orientation/consciousness: patient oriented x3 Limitations: no limitations HEENT Head: Yes normocephalic and Yes atraumatic Resp Effort & Inspection: normal respiratory effort and able to speak in complete sentences Cardio Rate: regular rate GI Inspection: No distended Palpation (GI): Soft to palpation and nontender Skin General skin exam: no rashes or lesions noted Neuro General: patient oriented x3 Extrem Other: Able to fully abduct her right shoulder but with significant stiffness and some pain Normal range of motion of left shoulder Positive empty can test on the right Negative Speed's test bilaterally Negative infraspinatus test bilaterally Negative empty can test on the left Osteoarthritic changes of both hands with 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 Abrupt onset of neck, bilateral shoulders, bilateral hip stiffness and pain, labs showed mildly elevated CRP with normal ESR and symptoms improve with prednisone. Last visit she had flared as soon prednisone 1 mg was stopped. Her main complaint at that time was bilateral trochanteric bursitis. I injected both with Kenalog. She states that she has been doing quite well until about a week and a half ago. Now she is flaring again. Restart prednisone at 2 mg day and do a slower taper, reduce by half a mg a month Labs before next visit in 3 months Plan I spent 20 minutes reviewing patient's chart, evaluating patient, ordering diagnostic workup, counseling patient and documenting in the chart Orders: Orders C Reactive Protein 3 Months M35.3 - Polymyalgia rheumatica Hepatitis A,B,C Profile 3 Months Z11.59 - Encounter for screening for other viral diseases T Spot TB 3 Months Z11.7 - Encounter for testing for latent tuberculosis infection Complete Blood Count Auto Diff 3 Months M35.3 - Polymyalgia rheumatica Comprehensive Met. Panel 3 Months M35.3 - Polymyalgia rheumatica Erythrocyte Sedimentation Rate 3 Months M35.3 - Polymyalgia rheumatica Medications: New prednisone Take 2 tabs daily for 1 month then 1-1/2 tabs daily for 1 month then 1 tab daily for 1 month 135 tabs 0RF Coding Level of Care Code Est Pt Level 3 (39233) Diagnoses Polymyalgia rheumatica M35.3
[2024-06-05 13:53] VITALS: BP 124/62; PULSE 75; O2SAT 97; BMI 28.7
== END 2024-06-05 14:13 | disposition home or self-care (01) ==
PROVIDERS: PCP Family Medicine; Visit Provider Student in an Organized Health Care Education/Training Program
DX: M35.3 Polymyalgia rheumatica (principal)
CPT/HCPCS: 99213

== ENCOUNTER → 2024-06-05 13:45 | Outpatient (BNVA) | payer MEDICARE, OTHER, SELFPAY | PROVIDERS: PCP Family Medicine; Visit Provider Student in an Organized Health Care Education/Training Program | DX: M35.3 Polymyalgia rheumatica (principal) | CPT/HCPCS: 99212 ==

== ENCOUNTER 2024-06-22 09:38 | Outpatient (REF) | payer MEDICARE, OTHER, SELFPAY ==
--- OUTSIDE RECORDS SUMMARY | 2024-06-22 09:40 | XMS_ITS | Continuity of Care Document ---
Author Organization [facility] Address [address] [place] [address] Phone [phone] Problems Active Problems Provider Date Thyroid nodule [...] SIG Qnty Indications Ordering Provider Date Rosuvastatin [id number] Tablets Take one tablet daily Dean Osei M.D. Olmesartan [id number] Tablets Take one tablet every evening Dean [...]
[2024-06-22 10:46] LABS: MANUAL DIFF FLAG NO
[2024-06-22 11:06] LABS: Basophils Absolute Auto 0.1 X10*3/uL (0.0-0.2); Basophils Percent Auto 1.3 % (0-2); Eosinophils Absolute Auto 0.1 X10*3/uL (0.0-0.4); Eosinophils Percent Auto 1.3 % (0-4); Hematocrit 38.6 % (37.0-47.0); Hemoglobin 12.7 g/dl (12.0-16.0); Imm Gran Abs Auto 0.05 X10*3/uL (0.00-0.03); Imm Gran Pct Auto 0.7 % (0.0-0.4); Lymphocytes Absolute Auto 1.6 X10*3/uL (1.2-4.9); Lymphocytes Percent Auto 22.3 % (20-40); Mean Corpuscular HGB Conc 32.9 g/dl (31.0-35.0); Mean Corpuscular Hemoglobin 31.1 pg (27.0-33.0); Mean Corpuscular Volume 94.6 fL (80.0-98.0); Mean Platelet Volume 9.5 fL (9.4-12.3); Monocytes Absolute Auto 0.4 X10*3/uL (0.1-1.2); Monocytes Percent Auto 5.7 % (2-11); Neutrophils Absolute Auto 4.9 x10*3/uL (2.0-8.3); Neutrophils Percent Auto 68.7 % (45-73); Platelet Count 224 X10*3/uL (160-400); Red Blood Count 4.08 X10*6/uL (4.20-5.50); Red Cell Distribution Width 11.9 % (11.0-16.0); White Blood Count 7.1 X10*3/uL (4.8-10.8)
[2024-06-22 11:10] LABS: Alanine Aminotransferase 16 U/L (0-31); Albumin Level 4.2 g/dL (3.5-5.0); Alkaline Phosphatase 44 U/L (39-117); Anion Gap 10 (12-20); Aspartate Amino Transferase 20 U/L (5-31); Bilirubin Total 1.5 mg/dL (0.0-1.0); Blood Urea Nitrogen 17 mg/dL (9-16); C Reactive Protein 0.33 mg/dL (< or = 0.50); Carbon Dioxide 26 mmol/L (22-29); Chloride 106 mmol/L (96-108); Estimated Glomerular Filt Rate > 60; Glucose Random 184 mg/dL (60-115); Potassium 4.1 mmol/L (3.3-5.1); Sodium 138 mmol/L (135-145); Total Protein 6.8 g/dL (6.5-8.0)
[2024-06-22 11:41] LABS: Erythrocyte Sedimentation Rate 6 MM/HR (0-20)
== END 2024-06-22 09:39 | disposition home or self-care (01) ==
LOC: HO.WFDLDS 09:38
PROVIDERS: Visit Provider Student in an Organized Health Care Education/Training Program
DX: M35.3 Polymyalgia rheumatica (principal)
CPT/HCPCS: 36415; 80053; 85025; 85652; 86140

== ENCOUNTER 2024-07-13 08:42 | Outpatient (AMB) | payer MEDICARE, OTHER, SELFPAY ==
--- NOTE | 2024-07-13 08:46 | MHC.OFFVIS ---
Vital Signs 07/13/24 08:48 Height 5 ft 4 in Weight 167 lb 12.348 oz BMI 28.8 BP 124/72 Blood Pressure Location Lt brachial Position Sitting Pulse 65 Pulse Source Pulse Oximeter Pulse Oximetry (%) 99 Oxygen Delivery Method Room Air Intake Visit Reasons: PMR Intake Note: Patient presents for PMR. Allergies penicillin G Allergy (Unknown, Verified 07/13/24 08:49) Hives seafood Allergy (Unknown, Verified 07/13/24 08:49) Unknown shellfish derived Allergy (Unknown, Verified 07/13/24 08:49) swelling,itch vancomycin Allergy (Unknown, Verified 07/13/24 08:49) facial redness Medication List - Last Reconciled 07/13/24 by Ashley Proctor MD olmesartan 40 mg PO DAILY prednisone 15 mg (3 x 5 mg) PO DAILY rosuvastatin 10 mg PO BEDTIME HPI Comments Details: Patient is an 79-year-old female with hyperlipidemia who presents for follow up of PMR Interval History: Patient last seen 05/[address] Morelos. At that time patient was having a relapse of her symptoms and she was started on low-dose of prednisone. She contacted Dr. Morelos in the office stating that the low dose of prednisone (5 mg) was not helpful and she was prescribed 15 mg with improvement in her pain and stiffness. She is here today stating that she feels well only complaining of bilateral trochanteric bursitis once more. (received steroid injections for both back in February 2024.) Rheumatologic History: Patient diagnosed with PMR in [place] after presenting with stiffness to her bilateral shoulders and elevated inflammatory markers. She establish care with a [facility] Rheumatology 08/2023. At that time she was given a steroid taper. Labs showed mildly elevated ESR at that time. She she completed her steroid taper over the next few months but had a relapse of her disease 02/2024. And restarted Prednisone 06/2024 Current Rheumatology Medication(s): Prednisone 15mg daily [facility] Medical History Tenosynovitis of hand Myalgia Impaired fasting glucose Hyperlipidemia, unspecified Hx: UTI (urinary tract infection) Hx of pulmonary valve stenosis Glaucoma Gilbert syndrome Fracture of toe of left foot Type 2 diabetes mellitus without complication Benign essential hypertension Atypical ductal hyperplasia of right breast Surgical History Hx of cholecystectomy H/O: hysterectomy History of colonoscopy Family History Mother Coronary artery disease Father Cancer of lung Social History Household Members: Spouse Alcohol intake: current Alcohol intake frequency: holidays/special occasions only Patient Tobacco Use Status: Former Tobacco user e-Cigarette/Vaping Use: Never Used Review of Systems Const Details: Review of Systems Constitutional: Denies fever, chills, weight loss ENT: Denies vision changes, eye pain or eye redness, dental caries, dry mouth GI: Denies nausea, vomiting, diarrhea, abdominal pain, change in BM Pulm: Denies SOB, HOU, hemoptysis, wheezing Cards: Denies chest pain, palpitations Skin: Denies Raynaud's, rash, nail changes, photosensitivity, MARKET NEWS REPORTER: Denies headaches, weakness, paresthesias, recurrent falls MSK: as per HPI All other systems reviewed and are unremarkable except noted above Physical Exam Vital Signs: Last Vital Signs Pulse 65 07/13/24 08:48 BP 124/72 07/13/24 08:48 Pulse Ox 99 07/13/24 08:48 Oxygen Delivery Method Room Air 07/13/24 08:48 BMI result Body Mass Index 28.8 Vital signs reviewed Physical Examination CONSTITUITIONAL Patient alert and cooperative. Well appearing and in no apparent painful distress HEENT Conjunctiva and sclera clear. ?Pupils equal round and reactive to light. ?No lymphadenopathy. ? CHEST/RESPIRATORY SYSTEM Normal respiratory effort and able to speak in complete sentences. ?Clear to auscultation bilaterally. ?No crackles, rales, rhonchi, wheezes heard. CARDIAC SYSTEM Regular rate and rhythm. ?S1 and S2 heard no murmurs. ?Radial pulses intact bilaterally MSK Hands: ?Good correctional nurse strength bilaterally. No deformities noted. ?No synovitis noted to the MCPs, PIPs or DIPs. ?No tenderness to palpation of these joints. Heberden's nodes noted throughout DIPs. Wrists: ?Full range of motion at the wrists without pain. ?No tenderness to palpation or synovitis noted to the wrists. Elbows: Full range of motion without pain. No tenderness, weakness, swelling, increased warmth or erythema. Shoulders: Full range of motion without pain. No tenderness, weakness, swelling, increased warmth or erythema. Hips: Full range of motion without pain. Hip bursa: Bilateral tenderness to palpation Knees: ?Full range of motion. ?No tenderness, swelling, increased warmth or erythema.?No effusion or crepitations Ankles: Full range of motion. ?No tenderness, swelling, increased warmth or erythema.? Feet: ?Negative squeeze test. ?No tenderness to palpation or swelling of the MTPs. Tender points:?No tenderness to palpation of the bilateral trapezius, supraspinatus, anterior costochondral junctions, bilateral gluteal areas, bilateral suboccipital muscle insertion SKIN Skin intact without rashes. Office Procedures AMB Joint Injection/Aspiration Joint Injection/Aspiration Details: Procedure was explained to the patient and consent was obtained. ? The area of interest was identified and confirmed with patient. ?This was subsequently cleaned with chlorhexidine x3. ? The area was then anesthetized using ethyl chloride spray. 40 mg Kenalog with 1 cc 1% lidocaine was injected without issue. ?Minimal to no bleeding. ?Patient tolerated procedure. Primary Site: other (Right greater trochanteric bursa) Prep: site was prepped using aseptic technique and ethochloride spray was applied Injected: 40 mg of, Kenalog, with 1 mL of, 1% plain lidocaine and other Approach Used: other Procedure: The patient tolerated the procedure well Coding - Glenohumeral/Tronchanteric Bursa/Intraarticular Procedure code (CPT) selection complete AMB Joint Injection/Aspiration Joint Injection/Aspiration Details: Procedure was explained to the patient and consent was obtained. ? The area of interest was identified and confirmed with patient. ?This was subsequently cleaned with chlorhexidine x3. ? The area was then anesthetized using ethyl chloride spray. 40 mg Kenalog with 1 cc 1% lidocaine was injected without issue. ?Minimal to no bleeding. ?Patient tolerated procedure. Primary Site: other (Left greater trochanteric bursa) Prep: site was prepped using aseptic technique and ethochloride spray was applied Injected: 40 mg of, Kenalog, with 1 mL of and 1% plain lidocaine Approach Used: other Procedure: The patient tolerated the procedure well Coding 46575 - Glenohumeral/Tronchanteric Bursa/Intraarticular Procedure code (CPT) selection complete Office Meds lidocaine (PF) 10 mg/mL (1 %) injection solution Performing Provider: Ashley Proctor MD Performing Location[place] [facility] Administered by: Ashley Proctor MD on 07/13/24 09:48 Dose Route Admin Location Dispensed Lot Number Expiration Date [facility] [employer] 10 mg Infiltration Right greater trochanter 2 mL [id number] 09/19/26 32281-778-04 [employer] Kenalog 40 mg/mL suspension for injection Performing Provider: Ashley Proctor MD Performing Location: [facility] Administered by: Ashley Proctor MD on 07/13/24 09:48 Dose Route Admin Location Dispensed Lot Number Expiration Date [facility] [employer] 40 mg intrabursal Right greater trochanter 1 mL [id number] 12/19/25 [address]-9 [employer] lidocaine (PF) 10 mg/mL (1 %) injection solution Performing Provider: Ashley Proctor MD Performing Location: [facility] Administered by: Ashley Proctor MD on 07/13/24 09:48 Dose Route Admin Location Dispensed Lot Number Expiration Date [facility] [employer] 10 mg Infiltration Left greater trochanter 2 mL [id number] 09/19/26 98716-285-48 [employer] Kenalog 40 mg/mL suspension for injection Performing Provider: Ashley Proctor MD Performing Location: [facility] Administered by: Ashley Proctor MD on 07/13/24 09:48 Dose Route Admin Location Dispensed Lot Number Expiration Date [facility] [employer] 40 mg intrabursal Left greater trochanter 1 mL [id number] 12/19/26 [address]-5 [employer] Results Reviewed Results Reviewed: Laboratory Tests 09/09/23 06/22/24 16:18 09:40 WBC 7.1 RBC 4.08 L Hgb 12.7 Hct 38.6 Plt Count 224 ESR 6 Sodium 138 Potassium 4.1 Chloride 106 Carbon Dioxide 26 BUN 17 H Creatinine 0.89 Calcium 9.0 D Total Bilirubin 1.5 H AST 20 ALT 16 Alkaline Phosphatase 44 C-Reactive Protein 0.33 Total Protein 6.8 Albumin 4.2 Rheumatoid Factor < 13.0 Cycl Citrul Peptide IgG <16 ROBERT Screen POSITIVE A ROBERT Titer 1:160 H Proteinase 3 (PR3) Ab <1.0 Myeloperoxidase Ab <1.0 SS-A/Ro Antibody <1.0 NEG SS-B/La Antibody <1.0 NEG Sm (Garcia) Antibody <1.0 NEG SM/DIRECTOR APPAREL IgG Antibody <1.0 NEG Double Strand DNA Ab 1 Anti-ds DNA (Crithidia) Negative Complement C3 144 Complement C4 33 Hepatitis A IgM Ab Nonreactive Hep Bs Antigen Negative Hep Bs Antibody NONREACTIVE Hep B Core Total Ab Nonreactive Hepatitis C Ab (EIA) Nonreactive TB Test (T-Spot) Com Negative XR Right Hand/Wrist 08/2023 FINDINGS: Moderate degenerative change at the first CMC. Carpal alignment normal. MCP joints intact. Mild degenerative changes second and third DIP joints. No fracture, dislocation or destructive process. XR Left Hand/Wrist 08/2023 FINDINGS: There is moderate degenerative change observed at the first CMC joint. Carpal alignment preserved. No fracture, dislocation or destructive process. Mild degenerative change seen in the second and third DIP joints. MCP joints preserved. Assessment & Plan Assessment & Plan (1) Polymyalgia rheumatica: Comment: PMR diagnosed in 2023 Started on steroids 08/2023-02/2024 had flare of her disease and prednisone was restarted Code(s): M35.3 - Polymyalgia rheumatica Category: Medical Plan: #PMR Patient is an 79-year-old female with diagnosis of PMR based on shoulder stiffness and elevated inflammatory markers. Responds well to prednisone. Currently on 20 mg of prednisone that she started 1/3 for recurrence of symptoms. Today she is doing well. Had a long discussion with patient and her about the treatment course of PMR. The treatment courses at least 18 months to 24 months of steroids with a slow taper. She has been on 15 mg for past 2 weeks and we will complete a full month of 15 mg and decrease to 12.5 mg for 4 weeks and then 10 mg for 4 weeks and then follow up. If there is any return of symptoms at the 10 mg dose the plan is to either add methotrexate or tocilizumab depending on patient preference. No signs or symptoms concerning for GCA at this time. Patient made aware of symptoms to monitor for Plan - Prednisone 15 mg for another 2 weeks then 12.5 mg for 4 weeks then 10 mg for 4 weeks and then follow up - RTC 3 months - Labs before next visit: CBC, CMP, ESR, CRP, hepatitis panel, T spot (2) Greater trochanteric bursitis of both hips: Code(s): M70.61 - Trochanteric bursitis, right hip; M70.62 - Trochanteric bursitis, left hip Category: Medical Plan: #Bilateral greater trochanteric bursitis Patient today complaining of bilateral greater trochanteric bursitis status post steroid injection. Plan I spent 40 minutes reviewing the record and labs, taking a history, examining the patient, discussing the treatment plan and documenting in the medical record Orders: Orders Complete Blood Count Auto Diff 3 Months M35.3 - Polymyalgia rheumatica Comprehensive Met. Panel 3 Months M35.3 - Polymyalgia rheumatica C Reactive Protein 3 Months M35.3 - Polymyalgia rheumatica Lipid Panel 3 Months M35.3 - Polymyalgia rheumatica AMB Joint Injection/Aspiration Today M70.61 - Trochanteric bursitis, right hip, M70.62 - Trochanteric bursitis, left hip AMB Joint Injection/Aspiration Today M70.61 - Trochanteric bursitis, right hip, M70.62 - Trochanteric bursitis, left hip Erythrocyte Sedimentation Rate 3 Months M35.3 - Polymyalgia rheumatica Hepatitis A,B,C Profile 3 Months M35.3 - Polymyalgia rheumatica T Spot TB 3 Months M35.3 - Polymyalgia rheumatica Medications: New prednisone Take 3 tablets once a day for 10 days (07/14-07/24), then take 2 and a half tablets for 4 weeks (07/25-3) then take 2 tablets for 4 weeks (08/23 - 09/19) 5 mg PO DIRECTED 160 tabs 0RF M35.3 - Polymyalgia rheumatica, M70.61 - Trochanteric bursitis, right hip, M70.62 - Trochanteric bursitis, left hip Discontinued prednisone Discontinued Reason: Doctor's Order Take 2 tabs daily for 1 month then 1-1/2 tabs daily for 1 month then 1 tab daily for 1 month 135 tabs 0RF prednisone Discontinued Reason: Doctor's Order 15 mg (3 x 5 mg) PO DAILY 90 tabs 0RF Coding Level of Care Code Est Pt Level 5 (17621) Complex EM visit Add On G2211 Diagnoses Polymyalgia rheumatica M35.3 Greater trochanteric bursitis of both hips M70.61; M70.62 CPT Codes Coding - Joint 7: 28265 - Glenohumeral/Tronchanteric Bursa/Intraarticular ([id number]) Coding - Joint 7: 42383 - Glenohumeral/Tronchanteric Bursa/Intraarticular ([id number])
[2024-07-13 08:48] VITALS: BP 124/72; PULSE 65; O2SAT 99; BMI 28.8
== END 2024-07-13 09:32 | disposition home or self-care (01) ==
PROVIDERS: PCP Family Medicine; Visit Provider Student in an Organized Health Care Education/Training Program
DX: M35.3 Polymyalgia rheumatica (principal); M70.61 Trochanteric bursitis, right hip; M70.62 Trochanteric bursitis, left hip
CPT/HCPCS: 20610; 99215

== ENCOUNTER → 2024-07-13 08:42 | Outpatient (BNVA) | payer MEDICARE, OTHER, SELFPAY | PROVIDERS: PCP Family Medicine; Visit Provider Student in an Organized Health Care Education/Training Program | DX: M35.3 Polymyalgia rheumatica (principal); M70.61 Trochanteric bursitis, right hip; M70.62 Trochanteric bursitis, left hip | CPT/HCPCS: 20610; 99212; J2003; J3300 ==

== ENCOUNTER 2024-09-15 11:16 | Outpatient (REF) | payer MEDICARE, OTHER, SELFPAY ==
[2024-09-15 14:32] LABS: MANUAL DIFF FLAG NO
[2024-09-15 14:43] LABS: Basophils Absolute Auto 0.1 X10*3/uL (0.0-0.2); Basophils Percent Auto 0.5 % (0-2); Eosinophils Percent Auto 0.2 % (0-4); Hematocrit 35.1 % (37.0-47.0); Hemoglobin 11.9 g/dl (12.0-16.0); Imm Gran Abs Auto 0.25 X10*3/uL (0.00-0.03); Imm Gran Pct Auto 2.5 % (0.0-0.4); Lymphocytes Absolute Auto 1.8 X10*3/uL (1.2-4.9); Mean Corpuscular HGB Conc 33.9 g/dl (31.0-35.0); Mean Corpuscular Hemoglobin 31.8 pg (27.0-33.0); Mean Corpuscular Volume 93.9 fL (80.0-98.0); Mean Platelet Volume 9.7 fL (9.4-12.3); Monocytes Absolute Auto 0.4 X10*3/uL (0.1-1.2); Monocytes Percent Auto 3.7 % (2-11); Neutrophils Absolute Auto 7.4 x10*3/uL (2.0-8.3); Neutrophils Percent Auto 75.1 % (45-73); Platelet Count 213 X10*3/uL (160-400); Red Blood Count 3.74 X10*6/uL (4.20-5.50); Red Cell Distribution Width 14.6 % (11.0-16.0); White Blood Count 9.8 X10*3/uL (4.8-10.8)
[2024-09-15 15:00] LABS: Alanine Aminotransferase 15 U/L (0-31); Albumin Level 3.9 g/dL (3.5-5.0); Alkaline Phosphatase 43 U/L (39-117); Anion Gap 10 (12-20); Aspartate Amino Transferase 20 U/L (5-31); Bilirubin Total 1.5 mg/dL (0.0-1.0); Blood Urea Nitrogen 21 mg/dL (9-16); C Reactive Protein 0.67 mg/dL (< or = 0.50); Calcium 9.2 mg/dL (8.4-10.2); Carbon Dioxide 24 mmol/L (22-29); Chloride 108 mmol/L (96-108); Estimated Glomerular Filt Rate > 60; Glucose Random 199 mg/dL (60-115); Potassium 4.2 mmol/L (3.3-5.1); Sodium 138 mmol/L (135-145); Total Protein 6.4 g/dL (6.5-8.0)
[2024-09-15 15:19] LABS: Erythrocyte Sedimentation Rate 10 MM/HR (0-20)
[2024-09-16 03:36] LABS: HBS Num1 1.13 mIU/mL (0-7.99); HBc Num1 0.05 S/CO (0.00-0.79); HBsAGNum1 0.36 S/CO (0.00-0.99); Hepatitis A Antibody IgM 0.15 Index (0-0.79); Hepatitis B Core Antibody Nonreactive (Nonreactive); Hepatitis B Surface Antigen Negative (Negative); ~HepC Num1 0.08 S/CO (0.00-0.79); ~Hepatitis A Antibody IgM Nonreactive (Nonreactive); ~Hepatitis B Surface Antibody NONREACTIVE (Nonreactive); ~Hepatitis C Antibody Nonreactive (Nonreactive)
[2024-09-18 19:29] LABS: TS Negative Control Passed; TS Panel A 0; TS Panel B 0; TS Positive Control Passed; TSpotTB Negative (Negative)
== END 2024-09-15 11:17 | disposition home or self-care (01) ==
LOC: HO.WFDLDS 11:16
PROVIDERS: Visit Provider Student in an Organized Health Care Education/Training Program
DX: M35.3 Polymyalgia rheumatica (principal)
CPT/HCPCS: 36415; 80053; 85025; 85652; 86140; 86481; 86704; 86706; 86709; 86803; 87340

== ENCOUNTER 2024-09-18 09:33 | Outpatient (REF) | payer MEDICARE, OTHER, SELFPAY ==
[2024-09-18 13:04] LABS: Cholesterol 183 mg/dL (<200); HDL Cholesterol 65 mg/dL (>40); LDL Cholesterol Calculated 59 mg/dL (<100); Triglycerides 298 mg/dL (<150)
== END 2024-09-18 09:34 | disposition home or self-care (01) ==
LOC: HO.WFDLDS 09:33
PROVIDERS: Visit Provider Student in an Organized Health Care Education/Training Program
DX: M35.3 Polymyalgia rheumatica (principal)
CPT/HCPCS: 36415; 80061

== ENCOUNTER 2024-09-19 11:26 | Outpatient (AMB) | payer MEDICARE, OTHER, SELFPAY ==
--- NOTE | 2024-09-19 11:28 | A.OFFVIS_ITS ---
Vital Signs 09/19/24 11:31 Height 5 ft 4 in Weight 171 lb 1.259 oz BMI 29.4 BP 112/60 Blood Pressure Location Lt brachial Position Sitting Pulse 89 Pulse Source Pulse Oximeter Pulse Oximetry (%) 97 Oxygen Delivery Method Room Air Intake Visit Reasons: PMR Intake Note: Patient presents today for PMR. Allergies penicillin G Allergy (Unknown, Verified 09/19/24 11:32) Hives seafood Allergy (Unknown, Verified 09/19/24 11:32) Unknown shellfish derived Allergy (Unknown, Verified 09/19/24 11:32) swelling,itch vancomycin Allergy (Unknown, Verified 09/19/24 11:32) facial redness Medication List - Last Reconciled 09/19/24 by Ashley Proctor MD metformin ER mg PO DAILY olmesartan 40 mg PO DAILY prednisone 5 mg PO DIRECTED rosuvastatin 10 mg PO BEDTIME HPI Comments Details: Patient is an 79-year-old female with hyperlipidemia who presents for follow up of PMR Interval History: Patient last seen 06/2024 with me. At that time patient was on prednisone 15 mg daily due to return of her PMR symptoms. Plan was to start tapering her prednisolone and if we were unable to taper we would add methotrexate or tocilizumab. She also received bilateral trochanteric bursitis injections Since then patient has been doing well Able to taper prednisone without issue Had lumpectomy 1 week ago Rheumatologic History: Patient diagnosed with PMR in [place] after presenting with stiffness to her bilateral shoulders and elevated inflammatory markers. She establish care with a [facility] 08/2023. At that time she was given a steroid taper. Labs showed mildly elevated ESR at that time. She she completed her steroid taper over the next few months but had a relapse of her disease 02/2024. And restarted Prednisone 06/2024 Current Rheumatology Medication(s): Prednisone 10mg daily [facility] Medical History (Updated 07/13/24 @ 09:42 by Ashley Proctor MD) Tenosynovitis of hand Myalgia Impaired fasting glucose Hyperlipidemia, unspecified Hx: UTI (urinary tract infection) Hx of pulmonary valve stenosis Glaucoma Gilbert syndrome Fracture of toe of left foot Type 2 diabetes mellitus without complication Benign essential hypertension Atypical ductal hyperplasia of right breast Surgical History H/O lumpectomy Surgical procedure on lower extremity within past 6 months Hx of cholecystectomy H/O: hysterectomy History of colonoscopy Family History Mother Coronary artery disease Father Cancer of lung Social History Household Members: Spouse Alcohol intake: current Alcohol intake frequency: holidays/special occasions only Patient Tobacco Use Status: Former Tobacco user e-Cigarette/Vaping Use: Never Used Review of Systems Const Details: Review of Systems Constitutional: Denies fever, chills, weight loss ENT: Denies vision changes, eye pain or eye redness, dental caries, dry mouth GI: Denies nausea, vomiting, diarrhea, abdominal pain, change in BM Pulm: Denies SOB, HOU, hemoptysis, wheezing Cards: Denies chest pain, palpitations Skin: Denies Raynaud's, rash, nail changes, photosensitivity, ADVERTISING TRAFFIC MANAGER: Denies headaches, weakness, paresthesias, recurrent falls MSK: as per HPI All other systems reviewed and are unremarkable except noted above Physical Exam Vital Signs: Last Vital Signs Pulse 89 09/19/24 11:31 BP 112/60 09/19/24 11:31 Pulse Ox 97 09/19/24 11:31 Oxygen Delivery Method Room Air 09/19/24 11:31 BMI result Body Mass Index 29.4 Vital signs reviewed Physical Examination CONSTITUITIONAL Patient alert and cooperative. Well appearing and in no apparent painful distr ess HEENT Conjunctiva and sclera clear. ?Pupils equal round and reactive to light. ?No lymphadenopathy. ? CHEST/RESPIRATORY SYSTEM Normal respiratory effort and able to speak in complete sentences. ?Clear to auscultation bilaterally. ?No crackles, rales, rhonchi, wheezes heard. CARDIAC SYSTEM Regular rate and rhythm. ?S1 and S2 heard no murmurs. ?Radial pulses intact bilaterally MSK Hands: ?Good song and dance performer strength bilaterally. No deformities noted. ?No synovitis noted to the MCPs, PIPs or DIPs. ?No tenderness to palpation of these joints. Heberden's nodes noted throughout DIPs. Wrists: ?Full range of motion at the wrists without pain. ?No tenderness to palpation or synovitis noted to the wrists. Elbows: Full range of motion without pain. No tenderness, weakness, swelling, increased warmth or erythema. Shoulders: Full range of motion without pain. No tenderness, weakness, swelling, increased warmth or erythema. Hips: Full range of motion without pain. Hip bursa: No TTP Knees: ?Full range of motion. ?No tenderness, swelling, increased warmth or erythema.?No effusion or crepitations Ankles: Full range of motion. ?No tenderness, swelling, increased warmth or erythema.? Feet: ?Negative squeeze test. ?No tenderness to palpation or swelling of the MTPs. Tender points:?No tenderness to palpation of the bilateral trapezius, supraspinatus, anterior costochondral junctions, bilateral gluteal areas, bilateral suboccipital muscle insertion SKIN Skin intact without rashes. Results Reviewed Results Reviewed: Laboratory Tests 09/15/24 11:20 WBC 9.8 RBC 3.74 L Hgb 11.9 L Hct 35.1 L Plt Count 213 ESR 10 Sodium 138 Potassium 4.2 Chloride 108 Carbon Dioxide 24 BUN 21 H Creatinine 0.88 Total Bilirubin 1.5 H AST 20 ALT 15 Alkaline Phosphatase 43 C-Reactive Protein 0.67 H Total Protein 6.4 L Albumin 3.9 Immunology labs 09/09/23 16:18 Rheumatoid Factor < 13.0 Cycl Citrul Peptide IgG <16 ROBERT Screen POSITIVE A ROBERT Titer 1:160 H Assessment & Plan Assessment & Plan (1) Polymyalgia rheumatica: Comment: PMR diagnosed in 2023 Started on steroids 08/2023-02/2024 had flare of her disease and prednisone was restarted Code(s): M35.3 - Polymyalgia rheumatica Category: Medical Plan: #PMR Patient is an 79-year-old female with polymyalgia rheumatica here today for follow up. Had a flare of her disease in May and has now been tapering on her steroids without issue. CRP increase compared to last check however patient denies any return of symptoms. Results were collected after her lumpectomy so that may have contributed to the elevation. We will continue our slow taper decreasing Prednisone 1 mg per month for the next 3 months and then follow up Plan - Prednisone 9 mg for 1 month then 8 mg for 1 month then 7 mg for a month and then follow up - RTC 3 months - Labs before visit: CBC, CMP, ESR, CRP Plan I spent 31 minutes reviewing the record and labs, taking a history, examining the patient, discussing the treatment plan, ordering diagnostic work up and documenting in the medical record Orders: Orders Comprehensive Met. Panel 3 Months M35.3 - Polymyalgia rheumatica Erythrocyte Sedimentation Rate 3 Months M35.3 - Polymyalgia rheumatica Complete Blood Count Auto Diff 3 Months M35.3 - Polymyalgia rheumatica C Reactive Protein 3 Months M35.3 - Polymyalgia rheumatica Medications: New prednisone Take with the 1 mg tablets 5 mg PO DAILY 90 tabs 1RF M35.3 - Polymyalgia rheumatica prednisone Take 4 pills for 30 days with 5mg tablets for a total of 9mg, then Take 3 pills for 30 days with 5mg tablets for a total of 8mg, then Take 3 pills for 30 days with 5mg tablets for a total of 8mg, 100 tabs 3RF M35.3 - Polymyalgia rheumatica Discontinued prednisone Take 3 tablets once a day for 10 days (07/14-07/24), then take 2 and a half tablets for 4 weeks (07/25-08/22) then take 2 tablets for 4 weeks (08/23 - 09/19) Discontinued Reason: Doctor's Order 5 mg PO DIRECTED 160 tabs 0RF M35.3 - Polymyalgia rheumatica, M70.61 - Trochanteric bursitis, right hip, M70.62 - Trochanteric bursitis, left hip Coding Level of Care Code Est Pt Level 4 (83034) Complex EM visit Add On G2211 Diagnoses Polymyalgia rheumatica M35.3
[2024-09-19 11:31] VITALS: BP 112/60; PULSE 89; O2SAT 97; BMI 29.4
--- OUTSIDE RECORDS SUMMARY | 2024-09-19 13:54 | XMS_ITS | Clinical Summary ---
Author Organization [facility] Facility Address [address] [place] [address] Care Team Providers Care Airplane Inspector Name Role Phone Dean Osei Jeanmarie YBARRA Primary Care Provider [phone] Allergies Active Allergy Reactions Criticality Noted Date Comments Penicillins Other (see comments) 08/13/2020 Sulfa Antibiotics Other (see comments) 08/13/19 21 Medications Multiple Vitamin (MULTIVITAMIN ADULT PO) Take 1 capsule by mouth 1 (one) time each day Active Cyanocobalamin (Vitamin B 12) 100 MCG lozenge Take 1 capsule by mouth 1 (one) time each day Active Acetaminophen 325 MG capsule Take 2 capsules by mouth 3 (three) times a day Active Cholecalciferol 250 MCG (32206 UT) capsule Take 2 capsules by mouth 1 (one) time each day Active olmesartan (BENICAR) 40 MG tablet Take 1 tablet by mouth 1 (one) time each day Active rosuvastatin (CRESTOR) 10 MG tablet Take 1 tablet by mouth 1 (one) time each day Active calcium carbonate (TUMS) 500 MG chewable tablet Chew 1 tablet 1 (one) time each day Active Active Problems Problem Noted Date Diagnosed Date Essential (primary) hypertension 02/04/2021 Chronic kidney disease, stage 2 (mild) Hypertensive heart and chron ic kidney disease without heart failure, with stage 1 through stage 4 chronic kidney disease, or unspecified chronic kidney disease 02/04/2021 Family History Medical History Relation Comments Cancer Father Heart disease Sibling 1 Cancer Sibling 2 Relation Status Comments Father Mother Sibling 1 Sibling 2 Social History Tobacco Use Types Packs/Day Years Used Date Smoking Tobacco: Never Smokeless Tobacco: Never Tobacco Cessation:Counseling Given: Not Answered Alcohol Use Standard Drinks/Week Comments Yes 0 (1 standard drink = 0.6 oz pure alcohol) Alcoholic Drinks/day: Occasional social drink Comments Unknown Sex and Gender Information Value Date Recorded Sex Assigned at Not on file Legal Sex Female 4:58 PM EST Gender Identity Not on file Sexual Orientation Not on file Last Filed Vital Signs Vital Sign Reading Time Taken Comments Blood Pressure 121/70 02/09/2023 2:56 PM EDT Pulse 70 02/09/2023 2:56 PM EDT Temperature - - Respiratory Rate - - Oxygen Saturation - - Inhaled Oxygen Concentration - - Weight 74.8 kg (165 lb) 02/09/2023 2:56 PM EDT Height 162.6 cm (5' 4 ) 08/13/2020 3:15 PM EST Body Mass Index 28.32 08/13/2020 3:15 PM EST Plan of Treatment Health Maintenance Due Date Last Done Comments Pneumococcal Vaccine: 65+ Ye ars (1 of 2 - PCV) 1951 Influenza Vaccine (#1) 2024 Hepatitis B Vaccine Aged Out No longe r eligible based on patient's age to complete this topic Insurance MEDICARE [facility] MEDICARE [facility] Care Teams Airplane Inspector Relationship Specialty Start Date End Date Dean Osei DO [address] [place] [address] PCP - General 07/01/20
--- OUTSIDE RECORDS SUMMARY | 2024-09-19 13:54 | XMS_ITS | Continuity of Care Document ---
Author Organization [facility] Address [address] [place] [address] Phone [phone] Problems Active Problems Provider Date Thyroid nodule [...] SIG Qnty Indications Ordering Provider Date Rosuvastatin [id number] Tablets Take one tablet daily Dean Osei M.D. Olmesartan [id number] Tablets Take one tablet every evening Dean [...]
--- OUTSIDE RECORDS SUMMARY | 2024-09-19 13:54 | XMS_ITS ---
Author Organization [facility] Address [address] [place] [address] Care Team Providers Care Stud Dairy Cattle Farmer Name Role Phone NITIN CARRILLO [phone] REASON FOR VISIT Update Kiosk Demographics Encounters Encounter Location Date Provider Diagnosis [facility] [address] [place] [address] 07/26/2023 NITIN CARRILLO Plan Of Treatment No Information Progress Notes * Aminah ZEPEDADOB:1945 (78 yo F)Acc No.[id number]:07/26/2023 Patient:?Aminah Zepeda :1945???Age:78 Y???Sex:Female Address:[address] [place] [address] [place] [address] * true * Date:? Generated for Laurie sheffield/Imani/eTransmitting on:?09/19/2024 01:54 PM EDT
--- OUTSIDE RECORDS SUMMARY | 2024-09-19 13:54 | XMS_ITS | Patient Health Record ---
Author Organization [facility] Address [address] [place] [address] Support Name Relationship Address Phone Aminah Zepeda Guarantor Unknown [phone] Allergies Allergen (clinical drug ingredient) Drug/Non Drug Allergy documented on EMR Reaction Allergy Type Onset Date Status Penicillin Unknown Drug Allergy Active Reason For Referral No Information Medications Medication SIG (Take, Route, Frequency, Duration) Notes Start Date End Date Status Cyclobenzaprine HCl 5 MG 1 tablet as nee ded Orally Three times a day 07/26/2023 Active Olmesartan Medoxomil 40 MG Oral for 90 Days Active Social History Tobacco Use: Social History Observation Description Date Details (start date - stop date) Never Smoker NA - NA Tobacco Use/Smoking Question Answer Notes Are you a nonsmoker Problems Problem Type SNOMED Code ICD Code Onset Dates Problem Status W/U Status Risk Notes Problem [id number] Neck pain (M54.2) Active confirmed Problem [id number] Myofascial muscle pain (M79.18) Active confirmed Plan Of Treatment No Information Insurance Providers Payer Name Payer Address Payer Phone Subscriber Number Group Number Insured Name Patient Relationship to Insured Coverage Start Date Coverage End Date Medicare Part B [address] [place] Sharma [phone] [id number] Aminah Zepeda Self - patient is the insured [facility] Indemnity / Unicare (SECONDARY) [address] [place] [phone] [id number] Aminah Zepeda Self - patient is the insured Medical (General) History Medical History History ICD Code Arthritis- has had cortisone shots befor e High Blood pressure high cholesterol spinal stenosis herniated disk 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
== END 2024-09-19 12:05 | disposition home or self-care (01) ==
LOC: HO.RHE 11:27
PROVIDERS: PCP Family Medicine; Visit Provider Student in an Organized Health Care Education/Training Program
DX: M35.3 Polymyalgia rheumatica (principal)
CPT/HCPCS: 99214; G2211

== ENCOUNTER → 2024-09-19 11:26 | Outpatient (BNVA) | payer MEDICARE, OTHER, SELFPAY | PROVIDERS: PCP Family Medicine; Visit Provider Student in an Organized Health Care Education/Training Program | DX: M35.3 Polymyalgia rheumatica (principal); M70.61 Trochanteric bursitis, right hip; M70.62 Trochanteric bursitis, left hip | CPT/HCPCS: 99212 ==

== ENCOUNTER 2024-12-21 10:00 | Outpatient (REF) | payer MEDICARE, OTHER, SELFPAY ==
--- OUTSIDE RECORDS SUMMARY | 2024-12-21 10:39 | XMS_ITS | Clinical Summary ---
Author Organization [facility] Address [address] [place] [address] [place] [address] Phone Care Team Providers Care Slabber Name Role Phone Dean Osei DO Primary Care Provider [phone] Allergies Active Allergy Reactions Criticality Noted Date [...] times a day Active Cholecalciferol 250 MCG (73824 UT) capsule Take 2 capsules by mouth [...] 08/13/2020 3:15 PM EST Plan of Treatment Upcoming Encounters Date Type Department Care Team (Late st Contact Info) Description 01/25/2025 4:00 PM EDT Office Visit [facility] [address] [place] [phone] Abner Brown MD [address] [phone] Health Maintenance Due Date Last Done Comments Pneumococcal Vaccine: 50+ Years (1 of 2 - PCV) 1964 Diabetes: Hemoglobin A1C 11/17/2024 Diabetes: Ophthalmology Exam 11/17/2024 Diabetes: Pedal Pulse Checked 11/17/2024 Diabetes: Sensory Foot Exam 11/17/2024 Diabetes: Visual Foot Exam 11/17/2024 Influenza Vaccine (Season Ended) 2025 03/16/2020, 03/24/2019 Hepatitis B Vaccine Aged Out No longe r eligible based on patient's age to complete this topic Insurance Medicare [place] [address] [place] [id number] Medicare [facility] Care Teams Slabber Relationship Specialty Start Date End Date Dean Osei DO [address] [place] [address] PCP - General 07/01/20
--- OUTSIDE RECORDS SUMMARY | 2024-12-21 10:39 | XMS_ITS | Patient Health Record ---
Author Organization [facility] Address [address] [place] [address] Support Name Relationship Address Phone Aminah Zepeda Guarantor Unknown [phone] Allergies Allergen (clinical drug ingredient) Drug/Non Drug [...] Problem Status W/U Status Risk Notes Problem [id number] Neck pain (M54.2) Active confirmed Problem [id number] Myofascial muscle pain (M79.18) Active confirmed Plan Of Treatment No Information Insurance Providers Payer Name Payer Address Payer Phone Subscriber Number Group Number Insured Name Patient Relationship to Insured Coverage Start Date Coverage End Date Medicare Part B [address] [place] Sh[place] [phone] [id number] Aminah Zepeda Self - patient is the insured [facility] Indemnity / Unicare (SECONDARY) [address] [place] [phone] [id number] Aminah Zepead Self - patient is the insured Medical (General) History Medical History History ICD Code Arthritis- has had cortisone shots befor e High Blood pressure high cholesterol spinal stenosis herniated disk 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
[2024-12-21 11:02] LABS: MANUAL DIFF FLAG NO
[2024-12-21 11:24] LABS: Hematocrit 37.0 % (37.0-47.0); Hemoglobin 12.3 g/dl (12.0-16.0); Imm Gran Abs Auto 0.09 X10*3/uL (0.00-0.03); Imm Gran Pct Auto 1.0 % (0.0-0.4); Lymphocytes Absolute Auto 1.4 X10*3/uL (1.2-4.9); Mean Corpuscular HGB Conc 33.2 g/dl (31.0-35.0); Mean Corpuscular Hemoglobin 31.3 pg (27.0-33.0); Mean Corpuscular Volume 94.1 fL (80.0-98.0); NRBC Abs Auto 0.000 X10*3/uL (0.0-0.012); NRBC Pct Auto 0.0 /100WBC (0.0-0.2); Platelet Count 195 X10*3/uL (160-400); Red Blood Count 3.93 X10*6/uL (4.20-5.50); White Blood Count 9.1 X10*3/uL (4.8-10.8)
[2024-12-21 15:41] LABS: Alanine Aminotransferase 14 U/L (0-31); Albumin Level 4.1 g/dL (3.5-5.0); Alkaline Phosphatase 52 U/L (39-117); Anion Gap 13 (12-20); Aspartate Amino Transferase 22 U/L (5-31); Blood Urea Nitrogen 22 mg/dL (9-16); Calcium 9.2 mg/dL (8.4-10.2); Carbon Dioxide 27 mmol/L (22-29); Chloride 104 mmol/L (96-108); Estimated Glomerular Filt Rate > 60; Potassium 4.3 mmol/L (3.3-5.1); Sodium 140 mmol/L (135-145); Total Protein 6.4 g/dL (6.5-8.0)
== END 2024-12-21 10:01 | disposition home or self-care (01) ==
LOC: HO.WFDLDS 10:00
PROVIDERS: Visit Provider Student in an Organized Health Care Education/Training Program
DX: M35.3 Polymyalgia rheumatica (principal)
CPT/HCPCS: 36415; 80053; 85025; 85652; 86140

== ENCOUNTER 2024-12-27 14:00 | Outpatient (AMB) | payer MEDICARE, OTHER, SELFPAY ==
[2024-12-27 14:05] VITALS: BP 124/64; PULSE 81; O2SAT 96; BMI 29.3
--- NOTE | 2024-12-27 14:05 | MHC.OFFVIS ---
Vital Signs 12/27/24 14:05 Height 5 ft 4 in Weight 170 lb 10.205 oz BMI 29.3 BP 124/64 Blood Pressure Location Lt brachial Position Sitting Pulse 81 Pulse Source Pulse Oximeter Pulse Oximetry (%) 96 Oxygen Delivery Method Room Air Intake Visit Reasons: PMR Intake Note: Patient presents for flare up of her PMR, she states the flare up started 3 weeks ago. Allergies penicillin G Allergy (Unknown, Verified 12/27/24 14:16) Hives seafood Allergy (Unknown, Verified 12/27/24 14:16) Unknown shellfish derived Allergy (Unknown, Verified 12/27/24 14:16) swelling,itch vancomycin Allergy (Unknown, Verified 12/27/24 14:16) facial redness Medication List - Last Reconciled 12/27/24 by Ashley Proctor MD metformin ER mg PO DAILY olmesartan 40 mg PO DAILY rosuvastatin 10 mg PO BEDTIME sarilumab (Kevzara) 200 mg (1.14 mL) subcut Q2W HPI Comments Details: Patient is an 79-year-old female with hyperlipidemia who presents for follow up of PMR Interval History: Patient last seen 09/19/24 - Able to taper prednisone form 15mg --> 10mg - plan to continue taper Today, - Tried to decrease her prednisone but currently having a flare: shoulders and hips - Started about 3 weeks ago - Currently on prednisone 8mg Rheumatologic History: Patient diagnosed with PMR in [place] after presenting with stiffness to her bilateral shoulders and elevated inflammatory markers. She establish care with a [facility] Rheumatology 08/2023. At that time she was given a steroid taper. Labs showed mildly elevated ESR at that time. She she completed her steroid taper over the next few months but had a relapse of her disease 02/2024. And restarted Prednisone 06/2024 Current Rheumatology Medication(s): Prednisone 8mg daily [facility] Medical History (Updated 07/13/24 @ 09:42 by Ashley Proctor MD) Tenosynovitis of hand Myalgia Impaired fasting glucose Hyperlipidemia, unspecified Hx: UTI (urinary tract infection) Hx of pulmonary valve stenosis Glaucoma Gilbert syndrome Fracture of toe of left foot Type 2 diabetes mellitus without complication Benign essential hypertension Atypical ductal hyperplasia of right breast Surgical History H/O lumpectomy Surgical procedure on lower extremity within past 6 months Hx of cholecystectomy H/O: hysterectomy History of colonoscopy Family History Mother Coronary artery disease Father Cancer of lung Social History Household Members: Spouse Alcohol intake: current Alcohol intake frequency: holidays/special occasions only Patient Tobacco Use Status: Former Tobacco user e-Cigarette/Vaping Use: Never Used Review of Systems Const Details: Review of Systems Constitutional: Denies fever, chills, weight loss ENT: Denies vision changes, eye pain or eye redness, dental caries, dry mouth GI: Denies nausea, vomiting, diarrhea, abdominal pain, change in BM Pulm: Denies SOB, HOU, hemoptysis, wheezing Cards: Denies chest pain, palpitations Skin: Denies Raynaud's, rash, nail changes, photosensitivity, JACKSCREW MAN: Denies headaches, weakness, paresthesias, recurrent falls MSK: as per HPI All other systems reviewed and are unremarkable except noted above Physical Exam Vital Signs: Last Vital Signs Pulse 81 12/27/24 14:05 BP 124/64 12/27/24 14:05 Pulse Ox 96 12/27/24 14:05 Oxygen Delivery Method Room Air 12/27/24 14:05 BMI result Body Mass Index 29.3 Vital signs reviewed Physical Examination CONSTITUITIONAL Patient alert and cooperative. Well appearing and in no apparent painful distress HEENT Conjunctiva and sclera clear. ?Pupils equal round and reactive to light. ?No lymphadenopathy. ? CHEST/RESPIRATORY SYSTEM Normal respiratory effort and able to speak in complete sentences. ?Clear to auscultation bilaterally. ?No crackles, rales, rhonchi, wheezes heard. CARDIAC SYSTEM Regular rate and rhythm. ?S1 and S2 heard no murmurs. 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 No deformities noted. ?No synovitis noted to the MCPs, PIPs or DIPs. ?No tenderness to palpation of these joints. Heberden's nodes noted throughout DIPs. Wrists: ?Full range of motion at the wrists without pain. ?No tenderness to palpation or synovitis noted to the wrists. Elbows: Full range of motion without pain. No tenderness, weakness, swelling, increased warmth or erythema. Shoulders: Decreased ROM with pain Hips: Full range of motion without pain. Hip bursa: TTP bilaterally Knees: ?Full range of motion. ?No tenderness, swelling, increased warmth or erythema.?No effusion or crepitations Ankles: Full range of motion. ?No tenderness, swelling, increased warmth or erythema.? Feet: ?Negative squeeze test. ?No tenderness to palpation or swelling of the MTPs. Tender points:?No tenderness to palpation of the bilateral trapezius, supraspinatus, anterior costochondral junctions, bilateral gluteal areas, bilateral suboccipital muscle insertion SKIN Skin intact without rashes. Office Procedures AMB Joint Injection/Aspiration Joint Injection/Aspiration Details: Procedure was explained to the patient and informed consent was obtained. ? Risks associated with the procedure were discussed with the patient including but not limited to bleeding, infection, drug reactions and reactions to the topical anesthetic. Patient made aware of signs to look out for infectious complications. The area of interest was identified and confirmed with patient. ?This was subsequently cleaned with chlorhexidine x 2. ? The area was then anesthetized using ethyl chloride spray. 40 mg Kenalog with 1 cc 1% lidocaine was injected without issue. ?Minimal to no bleeding. ?Patient tolerated procedure. Primary Site: other (right greater trochanteric bursa) Prep: site was prepped using aseptic technique and ethochloride spray was applied Injected: 40 mg of, Kenalog, with 1 mL of and 1% plain lidocaine Approach Used: other Procedure: The patient tolerated the procedure well Coding 02040 - Glenohumeral/Tronchanteric Bursa/Intraarticular Procedure code (CPT) selection complete AMB Joint Injection/Aspiration Joint Injection/Aspiration Details: Procedure was explained to the patient and informed consent was obtained. ? Risks associated with the procedure were discussed with the patient including but not limited to bleeding, infection, drug reactions and reactions to the topical anesthetic. Patient made aware of signs to look out for infectious complications. The area of interest was identified and confirmed with patient. ?This was subsequently cleaned with chlorhexidine x 2. ? The area was then anesthetized using ethyl chloride spray. 40 mg Kenalog with 1 cc 1% lidocaine was injected without issue. ?Minimal to no bleeding. ?Patient tolerated procedure. Primary Site: other (left greater trochanteric bursa) Prep: site was prepped using aseptic technique and ethochloride spray was applied Injected: 40 mg of, Kenalog, with 1 mL of and 1% plain lidocaine Approach Used: other Procedure: The patient tolerated the procedure well Coding 38481 - Glenohumeral/Tronchanteric Bursa/Intraarticular Procedure code (CPT) selection complete Office Meds lidocaine (PF) 10 mg/mL (1 %) injection solution Performing Provider: Ashley Proctor MD [place] [facility] [place] Administered by: Ashley Proctor MD on 12/27/24 16:49 Dose Route Admin Location Dispensed Lot Number Expiration Date ND Reception Interviewer 1 mL Infiltration right greater trochanteri 2 mL [id number] 08/19/26 22317-755-46 [employer] Total Dispensed Waste 2 mL 50 % Kenalog 40 mg/mL suspension for injection Performing Provider: Ashley Proctor MD Performing [place] [facility] [place] Administered by: Ashley Proctor MD on 12/27/24 16:49 Dose Route Admin Location Dispensed Lot Number Expiration Date [facility] Reception Interviewer 40 mg intrabursal right greater trochanteri 1 mL [id number] 09/19/26 7037-5373-90 [facility] Total Dispensed Waste 1 mL 0 % lidocaine (PF) 10 mg/mL (1 %) injection solution Performing Provider: Ashley Proctor MD Performing Location[place] [facility] [place] Administered by: Ashley Proctor MD on 12/27/24 16:49 Dose Route Admin Location Dispensed Lot Number Expiration Date ND Reception Interviewer 1 mL Infiltration left greater trochanteric 2 mL [id number] 08/19/26 31638-082-94 [employer] Total Dispensed Waste 2 mL 50 % Kenalog 40 mg/mL suspension for injection Performing Provider: Ashley Proctor MD Performing Location: [facility] [place] Administered by: Ashley Proctor MD on 12/27/24 16:49 Dose Route Admin Location Dispensed Lot Number Expiration Date ND Reception Interviewer 40 mg intrabursal left greater trochanteric 1 mL [id number] 09/19/26 4295-9038-07 [facility] Total Dispensed Waste 1 mL 0 % Results Reviewed Results Reviewed: Laboratory Tests 09/15/24 12/21/24 11:20 10:02 WBC 9.1 RBC 3.93 L Hgb 12.3 Hct 37.0 Plt Count 195 ESR 13 Sodium 140 Potassium 4.3 Chloride 104 Carbon Dioxide 27 BUN 22 H Creatinine 0.89 AST 22 ALT 14 C-Reactive Protein 0.67 H 1.02 H Immunology labs 09/09/23 16:18 Rheumatoid Factor < 13.0 Cycl Citrul Peptide IgG <16 ROBERT Screen POSITIVE A ROBERT Titer 1:160 H Assessment & Plan Assessment & Plan (1) Polymyalgia rheumatica: Comment: PMR diagnosed in 2023 Started on steroids 08/2023-02/2024 had flare of her disease and prednisone was restarted Code(s): M35.3 - Polymyalgia rheumatica Category: Medical Plan: #PMR Patient is an 79-year-old female with polymyalgia rheumatica here today for follow up. Unable to taper prednisone. This is the second time she has had a flare after trying to taper her medication. Discussed starting Kevzara and patient is amenable. 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 Benefits include decreased pain, improved mortality, improved quality of life Risks include LFT abnormalities, elevated triglycerides, GI perforations Contraindicated in a patient with history of diverticulitis Monitoring: CBC, CMP, triglycerides Plan I spent 31 minutes reviewing the record and labs, taking a history, examining the patient, discussing the treatment plan, ordering diagnostic work up and documenting in the medical record Orders: Orders Complete Blood Count Auto Diff 3 Months M35.3 - Polymyalgia rheumatica Comprehensive Met. Panel 3 Months M35.3 - Polymyalgia rheumatica C Reactive Protein 3 Months M35.3 - Polymyalgia rheumatica T Spot TB 3 Months M35.3 - Polymyalgia rheumatica AMB Joint Injection/Aspiration Today M35.3 - Polymyalgia rheumatica Erythrocyte Sedimentation Rate 3 Months M35.3 - Polymyalgia rheumatica Hepatitis A,B,C Profile 3 Months M35.3 - Polymyalgia rheumatica Lipid Panel 3 Months M35.3 - Polymyalgia rheumatica AMB Joint Injection/Aspiration Today M35.3 - Polymyalgia rheumatica Medications: New sarilumab (Kevzara) 200 mg (1.14 mL) subcut Q2W 2.28 mL 5RF M35.3 - Polymyalgia rheumatica prednisone 10 mg (2 x 5 mg) PO DAILY 180 tabs 1RF 90 days M35.3 - Polymyalgia rheumatica Discontinued prednisone Take with the 1 mg tablets Discontinued Reason: Doctor's Order 5 mg PO DAILY 90 tabs 1RF M35.3 - Polymyalgia rheumatica prednisone Discontinued Reason: Doctor's Order Take 4 pills for 30 days with 5mg tablets for a total of 9mg, then Take 3 pills for 30 days with 5mg tablets for a total of 8mg, then Take 3 pills for 30 days with 5mg tablets for a total of 8mg, 100 tabs 3RF M35.3 - Polymyalgia rheumatica Coding Level of Care Code Est Pt Level 4 (56256) Complex EM visit Add On G2211 Diagnoses Polymyalgia rheumatica M35.3 Greater trochanteric bursitis of both hips M70.61; M70.62 detention current use of sarilumab Z79.620 CPT Codes Coding - Joint 7: 33896 - Glenohumeral/Tronchanteric Bursa/Intraarticular ([id number]) Coding - Joint 7: 18848 - Glenohumeral/Tronchanteric Bursa/Intraarticular ([id number])
--- OUTSIDE RECORDS SUMMARY | 2024-12-27 14:44 | XMS_ITS | Continuity of Care Document ---
Author Organization [facility] Address [address] [place] [address] Phone [phone] Problems Active Problems Provider Date Thyroid nodule Armand Gutierrez M.D. Onset: Pulmonary stenosis, non-rheumatic Armand sweeney M.D. Onset: 06/18/2022 Squamous cell carcinoma Armand Gutierrez M.D. On set: 06/18/2022 Essential hypertension Armand Gutierrez M.D. Ons et: 06/18/2022 Hypercholesterolemia Armand Gutierrez M.D. Onset : 06/18/2022 Social History Type Date Description Comments Sex Female Sex Unknown Lives With Spouse ETOH Use Rarely consumes alcohol Tobacco Use Start: Unknown End: Unknown Patient is a former smoker Quit Smoking Status Reviewed: 12/25/24 Patient is a former smoker Quit Allergies and adverse reactions Active Allergies Criticality Reaction Severity Comments Date Shellfish-Derived Products Unable to assess criticality 06/18/2022 Vancomycin Unable to assess criticality 06/18/2022 Penicillin Unable to assess criticality 06/18/2022 Medications Active Medications SIG Qnty Indications Ordering Provider Date Rosuvastatin [id number] Tablets Take one tablet daily Dean Osei M.D. Olmesartan Ieoaajxsr67fc Tablets Take one tablet every evening Dean [...]
--- OUTSIDE RECORDS SUMMARY | 2024-12-27 14:44 | XMS_ITS | Patient Health Record ---
Author Organization [facility] Address [address] [place] [address] Support Name Relationship Address Phone Aminah Zepeda Guarantor Unknown [phone] Allergies Allergen (clinical drug ingredient) Drug/Non Drug [...] Problem Status W/U Status Risk Notes Problem [id number] Neck pain (M54.2) Active confirmed Problem [id number] Myofascial muscle pain (M79.18) Active confirmed Plan Of Treatment No Information Insurance Providers Payer Name Payer Address Payer Phone Subscriber Number Group Number Insured Name Patient Relationship to Insured Coverage Start Date Coverage End Date Medicare Part B [address] [place] Sharma [phone] [id number] Aminah Zepeda Self - patient is the insured [facility] Indemnity / Unicare (SECONDARY) [address] [place] [phone] [id number] Amniah Zepeda Self - patient is the insured Medical (General) History Medical History History ICD Code Arthritis- has had cortisone shots befor e High Blood pressure high cholesterol spinal stenosis herniated disk 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
--- OUTSIDE RECORDS SUMMARY | 2024-12-27 14:44 | XMS_ITS | Clinical Summary ---
Author Organization [facility] Address [address] [place] [address] [place] [address] Phone Care Team Providers Care Shift Supervisor Name Role Phone Dean Osei DO Primary Care Provider [phone] Allergies Active Allergy Reactions Criticality Noted Date [...] times a day Active Cholecalciferol 250 MCG (52616 UT) capsule Take 2 capsules by mouth [...] Office Visit [facility] [address] [place] [phone] Abner Brown MD [address] [phone] Health Maintenance Due Date Last Done Comments Pneumococcal Vaccine: 50+ Years (1 of 2 - PCV) 1964 Diabetes: Hemoglobin A1C 11/17/2024 Diabetes: Ophthalmology Exam 11/17/2024 Diabetes: Pedal Pulse Checked 11/17/2024 Diabetes: Sensory Foot Exam 11/17/2024 Diabetes: Visual Foot Exam 11/17/2024 Influenza Vaccine (#1) 2025 0, 03/24/2019 Hepatitis B Vaccine Aged Out No longe r eligible based on patient's age to complete this topic Insurance Medicare [place] [address] [place] [id number] [facility] Care Teams Shift Supervisor Relationship Specialty Start Date End Date Dean Osei DO [address] [place] [address] PCP - General 07/01/20
== END 2024-12-27 15:01 | disposition home or self-care (01) ==
LOC: HO.RHE 14:01
PROVIDERS: PCP Family Medicine; Visit Provider Student in an Organized Health Care Education/Training Program
DX: M35.3 Polymyalgia rheumatica (principal); M70.61 Trochanteric bursitis, right hip; M70.62 Trochanteric bursitis, left hip; Z79.620 Long term (current) use of immunosuppressive biologic
CPT/HCPCS: 20610; 99214

== ENCOUNTER → 2024-12-27 14:00 | Outpatient (BNVA) | payer MEDICARE, OTHER, SELFPAY | PROVIDERS: PCP Family Medicine; Visit Provider Student in an Organized Health Care Education/Training Program | DX: M35.3 Polymyalgia rheumatica (principal); M70.61 Trochanteric bursitis, right hip; M70.62 Trochanteric bursitis, left hip; Z79.620 Long term (current) use of immunosuppressive biologic; Z79.52 Long term (current) use of systemic steroids | CPT/HCPCS: 20610; 99212; J3300 ==

== ENCOUNTER 2025-03-12 08:40 | Outpatient (REF) | payer MEDICARE, OTHER, SELFPAY ==
--- OUTSIDE RECORDS SUMMARY | 2025-03-12 10:02 | XMS_ITS | Clinical Summary ---
Author Organization [facility]. Address [address] [place] [address] ARI[place] RODRIGUEZ [address] Phone Care Team Providers Care Stapling Machine Operator Name Role Phone Dean Osei DO Primary Care Provider [phone] Allergies Active Allergy Reactions Criticality Noted Date Comments Penicillins Other (see comments) 08/13/2020 Sulfa Antibiotics Other (see comments) 08/13/19 21 Medications Multiple Vitamin (MULTIVITAMIN ADULT PO) Take 1 capsule by mouth 1 (one) time each day Active Cyanocobalamin (Vitamin B 12) 100 MCG lozenge Take 1 capsule by mouth 1 (one) time each day Active Cholecalciferol 250 MCG (40978 UT) capsule Take 2 capsules by mouth 1 (one) time each day Active olmesartan (BENICAR) 40 MG tablet Take 1 tablet by mouth 1 (one) time each day Active rosuvastatin (CRESTOR) 10 MG tablet Take 1 tablet by mouth 1 (one) time each day Active calcium carbonate (TUMS) 500 MG chewable tablet Chew 1 tablet 1 (one) time each day Active Denosumab (PROLIA SC) Inject under the skin Active Sarilumab (KEVZARA SC) Inject under the skin Active PREDNISONE PO Take by mouth Ac tive Active Problems Problem Noted Date Diagnosed Date Stage 3a chronic kidney disease 01/25/2025 Essential (primary) hypertension 02/04/2021 Chronic kidney disease, stage 2 (mild) Hypertensive heart and chron ic kidney disease without heart failure, with stage 1 through stage 4 chronic kidney disease, or unspecified chronic kidney disease 02/04/2021 Encounters Date Type Department Care Team Description 01/25/2025 4:00 PM EDT Office Visit [facility] [address] [id number] Abner Brown MD Stage 3a chronic kidney disease (HCC) (Primary Dx); Hypertensive heart and chronic kidney disease without heart failure, with stage 1 through stage 4 chronic kidney disease, or unspecified chronic kidney disease from Last 3 Months Family History Medical History Relation Comments Cancer [...] Sign Reading Time Taken Comments Blood Pressure 120/77 01/25/2025 3:48 PM EDT Pulse 85 01/25/2025 3:48 PM EDT Temperature - - Respiratory Rate - - Oxygen Saturation - - Inhaled Oxygen Concentration - - Weight 77.1 kg (170 lb) 01/25/2025 3:48 PM EDT Height 162.6 cm (5' 4 ) 08/13/2020 3:15 PM EST Body Mass Index 29.18 08/13/2020 3:15 PM EST Plan of Treatment Upcoming Encounters Date Type Department Care Team (Late st Contact Info) Description 08/30/2025 1:00 PM EDT [facility] Visit [facility] [address] [phone] Abner Brown MD [address] [address] 01/24/2026 2:00 PM EDT Office Visit [facility] [address] [phone] Abner Brown MD [address] [address] Health Maintenance Due Date Last Done Comments [...] patient's age to complete this topic [place] [id number] Medicare [employer] Medicare [employer] Care Teams Stapling Machine Operator Relationship Specialty Start Date End Date Dean Osei DO [address] [place] [address] PCP - General 07/01/20
[2025-03-12 11:17] LABS: MANUAL DIFF FLAG NO
[2025-03-12 11:36] LABS: Hematocrit 36.8 % (37.0-47.0); Hemoglobin 12.6 g/dl (12.0-16.0); Imm Gran Abs Auto 0.07 X10*3/uL (0.00-0.03); Imm Gran Pct Auto 1.9 % (0.0-0.4); Lymphocytes Absolute Auto 1.4 X10*3/uL (1.2-4.9); Mean Corpuscular HGB Conc 34.2 g/dl (31.0-35.0); Mean Corpuscular Hemoglobin 31.6 pg (27.0-33.0); Mean Corpuscular Volume 92.2 fL (80.0-98.0); NRBC Abs Auto 0.020 X10*3/uL (0.0-0.012); NRBC Pct Auto 0.5 /100WBC (0.0-0.2); Platelet Count 160 X10*3/uL (160-400); Red Blood Count 3.99 X10*6/uL (4.20-5.50); White Blood Count 3.7 X10*3/uL (4.8-10.8)
[2025-03-12 11:54] LABS: Alanine Aminotransferase 26 U/L (0-31); Albumin Level 4.1 g/dL (3.5-5.0); Alkaline Phosphatase 47 U/L (39-117); Anion Gap 10 (12-20); Aspartate Amino Transferase 28 U/L (5-31); Blood Urea Nitrogen 21 mg/dL (9-16); Calcium 8.9 mg/dL (8.4-10.2); Carbon Dioxide 28 mmol/L (22-29); Chloride 106 mmol/L (96-108); Cholesterol 184 mg/dL (<200); Estimated Glomerular Filt Rate > 60; HDL Cholesterol 58 mg/dL (>40); Potassium 3.9 mmol/L (3.3-5.1); Sodium 140 mmol/L (135-145); Total Protein 6.1 g/dL (6.5-8.0); Triglycerides 225 mg/dL (<150)
[2025-03-12 12:19] LABS: HBS Num1 0.00 mIU/mL (0-7.99); HBc Num1 0.06 S/CO (0.00-0.79); HBsAGNum1 0.50 S/CO (0.00-0.99); Hepatitis A Antibody IgM 0.16 Index (0-0.79); Hepatitis B Surface Antigen Negative (Negative); ~HepC Num1 0.06 S/CO (0.00-0.79); ~Hepatitis A Antibody IgM Nonreactive (Nonreactive); ~Hepatitis B Surface Antibody NONREACTIVE (Nonreactive); ~Hepatitis C Antibody Nonreactive (Nonreactive)
[2025-03-15 05:10] LABS: TS Negative Control Passed; TS Panel A 0; TS Panel B 2; TS Positive Control Passed; TSpotTB Negative (Negative)
== END 2025-03-12 08:41 | disposition home or self-care (01) ==
LOC: HO.WFDLDS 08:40
PROVIDERS: Visit Provider Student in an Organized Health Care Education/Training Program
DX: M35.3 Polymyalgia rheumatica (principal); Z11.1 Encounter for screening for respiratory tuberculosis; Z13.6 Encounter for screening for cardiovascular disorders
CPT/HCPCS: 36415; 80053; 80061; 85025; 85652; 86140; 86481; 86704; 86706; 86709; 86803; 87340

== ENCOUNTER 2025-03-13 11:16 | Outpatient (AMB) | payer MEDICARE, OTHER, SELFPAY ==
--- NOTE | 2025-03-13 11:32 | A.OFFVIS_ITS ---
Vital Signs 03/13/25 11:37 Height 5 ft 4 in Weight 175 lb 4.28 oz BMI 30.1 BP 122/80 Blood Pressure Location Lt brachial Position Sitting Pulse 76 Pulse Source Pulse Oximeter Pulse Oximetry (%) 98 Oxygen Delivery Method Room Air Intake Visit Reasons: hip pain Intake Note: Patient presents for hip pain follow up. Patient c/o bilateral hip pain and Rt knee pain. Allergies penicillin G Allergy (Unknown, Verified 03/13/25 11:36) Hives seafood Allergy (Unknown, Verified 03/13/25 11:36) Unknown shellfish derived Allergy (Unknown, Verified 03/13/25 11:36) swelling,itch vancomycin Allergy (Unknown, Verified 03/13/25 11:36) facial redness Medication List - Last Reconciled 03/13/25 by Ashley Proctor MD metformin ER mg PO DAILY olmesartan 40 mg PO DAILY prednisone 10 mg (2 x 5 mg) PO DAILY 90 days rosuvastatin 10 mg PO BEDTIME sarilumab (Kevzara) 200 mg (1.14 mL) subcut Q2W HPI Comments Details: Patient is an 80-year-old female with hyperlipidemia who presents for follow up of PMR Interval History: Patient last seen 12/27/2024 - On prednisone 8mg daily - Tried to decrease her prednisone but currently having a flare: shoulders and hips - Started about 3 weeks ago - Added Kevzara - Given trochanteric bursa injections bilaterally Today - On prednisone 10mg and Kevzara 200mg SC every 2 weeks - on month 3 of Kevzara - noting worsening right outer hip pain Rheumatologic History: Patient diagnosed with PMR in [place] after presenting with stiffness to her bilateral shoulders and elevated inflammatory markers. She establish care with a [facility] [place] 08/2023. At that time she was given a steroid taper. Labs showed mildly elevated ESR at that time. She she completed her steroid taper over the next few months but had a relapse of her disease 02/2024. And restarted Prednisone 06/2024 Current Rheumatology Medication(s): Prednisone 10mg daily Kevzara 200mg SC every 2 weeks [facility] Medical History (Updated 07/13/24 @ 09:42 by Ashley Proctor MD) Tenosynovitis of hand Myalgia Impaired fasting glucose Hyperlipidemia, unspecified Hx: UTI (urinary tract infection) Hx of pulmonary valve stenosis Glaucoma Gilbert syndrome Fracture of toe of left foot Type 2 diabetes mellitus without complication Benign essential hypertension Atypical ductal hyperplasia of right breast Surgical History H/O lumpectomy Surgical procedure on lower extremity within past 6 months Hx of cholecystectomy H/O: hysterectomy History of colonoscopy Family History Mother Coronary artery disease Father Cancer of lung Social History Household Members: Spouse Alcohol intake: current Alcohol intake frequency: holidays/special occasions only Patient Tobacco Use Status: Former Tobacco user e-Cigarette/Vaping Use: Never Used Review of Systems Const Details: Review of Systems Constitutional: Denies fever, chills, weight loss ENT: Denies vision changes, eye pain or eye redness, dental caries, dry mouth GI: Denies nausea, vomiting, diarrhea, abdominal pain, change in BM Pulm: Denies SOB, HOU, hemoptysis, wheezing Cards: Denies chest pain, palpitations Skin: Denies Raynaud's, rash, nail changes, photosensitivity, PRINTER FLOOR COVERING ASSISTANT: Denies headaches, weakness, paresthesias, recurrent falls MSK: as per HPI All other systems reviewed and are unremarkable except noted above Physical Exam Exam Exam: Vital signs reviewed Physical Examination CONSTITUITIONAL Patient alert and cooperative. Well appearing and in no apparent painful distress MSK Hands * Right Hand: Able to make a fist. No swelling or tenderness to palpation of the MCPs, PIPs or DIPs. * Left Hand: Able to make a fist. No swelling or tenderness to palpation of the MCPs, PIPs or DIPs. * Herbedens nodes noted bilaterally Wrists * Right Wrist: Full ROM to flexion and extension. No swelling or TTP * Left Wrist: Full ROM to flexion and extension. No swelling or TTP Elbows * Right Elbow: Full ROM. No swelling or TTP. No TTP of the medial epicondyle. No TTP of the lateral epicondyle * Left Elbow: Full ROM. No swelling or TTP. No TTP of the medial epicondyle. No TTP of the lateral epicondyle Shoulders * Right shoulder: Full ROM. No swelling noted. No TTP of the AC joint. No TTP of the subacromial bursa. No TTP of the posterior shoulder * Left shoulder: Full ROM. No swelling noted. No TTP of the AC joint. No TTP of the subacromial bursa. No TTP of the posterior shoulder Hips * Right hip: Good ROM. No pain elicited with hip flexion/internal rotation/external rotation * Left hip: Good ROM. No pain elicited with hip flexion/internal rotation/external rotation Hip bursa: TTP Bilaterally, R>L Knees * Right knee: Full ROM. No swelling noted. No TTP of the knee joint line. No TTP of pes anserine bursa * Left knee: Full ROM. No swelling noted. No TTP of the knee joint line. No TTP of pes anserine bursa. * Crepitations felt bilaterally Ankles * Right ankle: Good ankle dorsiflexion and plantar flexion. No swelling. No TTP of the ankle joint * Left ankle: Good ankle dorsiflexion and plantar flexion. No swelling. No TTP of the ankle joint Feet * Right foot: Negative squeeze test * Left foot: Negative squeeze test Tender points? * No tenderness to palpation of the bilateral trapezius, supraspinatus, anterior costochondral junctions, bilateral suboccipital muscle insertions SKIN No rashes Vital Signs: Last Vital Signs Pulse 76 03/13/25 11:37 BP 122/80 03/13/25 11:37 Pulse Ox 98 03/13/25 11:37 Oxygen Delivery Method Room Air 03/13/25 11:37 BMI result Body Mass Index 30.1 Results Reviewed Results Reviewed: Laboratory Tests 12/21/24 03/12/25 03/12/25 10:02 08:24 08:42 WBC 3.7 L RBC 3.99 L Hgb 12.6 Hct 36.8 L Plt Count 160 ESR 5 Sodium 140 Potassium 3.9 Chloride 106 Carbon Dioxide 28 BUN 21 H Creatinine 0.90 AST 28 ALT 26 C-Reactive Protein 1.02 H 1.19 H Triglycerides 225 H Cholesterol 184 LDL Cholesterol, Calc 81 HDL Cholesterol 58 Laboratory Tests 09/15/24 03/12/25 11:20 08:42 Hepatitis A IgM Ab Nonreactive Hep Bs Antigen Negative Hep Bs Antibody NONREACTIVE Hep B Core Total Ab Nonreactive Hepatitis C Ab (EIA) Nonreactive TB Test (T-Spot) Com Negative Pending Assessment & Plan Assessment & Plan (1) Polymyalgia rheumatica: Comment: PMR diagnosed in 2023 Started on steroids 08/2023-02/2024 had flare of her disease and prednisone was restarted Code(s): M35.3 - Polymyalgia rheumatica Category: Medical Plan: #PMR Patient is an 80-year-old female with polymyalgia rheumatica here today for follow up. Complaining of bilateral greater trochanteric bursa pain right worse than left. Status post Toradol injection to the right. Can consider increasing her prednisolone for 2 weeks so that she has a agreeable trip to [place] Plan - Prednisone 10mg daily - received Toradol injection to right trochanteric bursa today. 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 Benefits include decreased pain, improved mortality, improved quality of life Risks include LFT abnormalities, elevated triglycerides, GI perforations Contraindicated in a patient with history of diverticulitis Monitoring: CBC, CMP, triglycerides (4) keno terminal operator (current) use of systemic steroids: Code(s): Z79.52 - MCC (current) use of systemic steroids Plan: #Long-term Use of Steroids Discussed with patient the risks and benefits of steroid for managing the rheumatic condition Benefits include: - Reduced pain, improved mobility, increased participation in activities, and decreased progression of disease Risks include: - GI upset, potential ultrasound worsening or formation (especially in patients > 65 years old), elevated blood pressure/worsening hypertension, elevated blood sugar/worsening diabetes control, worsening of bone density, elevated lipids/worsening triglycerides, cataract formation, weight gain Recommended using proton pump inhibitors (PPIs) for the duration of steroid use to reduce the risk of gastric ulcers and vitamin-D daily to reduce the risk of osteoporosis Labs checked: A1c, T spot, hepatitis-B and C serologies Pneumocystis jiroveci prophylaxis: Patient with risk factors including steroids greater than 50 mg for more than 30 days, age greater than 60 years, and lung involvement from underlying rheumatic disease requires prophylaxis and will be given so Plan I spent 30 minutes reviewing the record and labs, taking a history, examining the patient, discussing the treatment plan, ordering diagnostic work up and documenting in the medical record Orders: Orders C Reactive Protein 3 Months Z79.899 - Other intermediate project manager (current) drug therapy Complete Blood Count Auto Diff 3 Months Z79.899 - Other intermediate project manager (current) drug therapy Comprehensive Met. Panel 3 Months Z79.899 - Other intermediate (current) drug therapy Erythrocyte Sedimentation Rate 3 Months Z79.899 - Other intermediate (current) drug therapy Lipid Panel 3 Months Z79.899 - Other intermediate project manager (current) drug therapy Coding Level of Care Code Est Pt Level 4 (60629) Complex EM visit Add On G2211 Diagnoses Polymyalgia rheumatica M35.3 Greater trochanteric bursitis of both hips M70.61; M70.62 MCC current use of sarilumab Z79.620 keno terminal operator (current) use of systemic steroids Z79.52
[2025-03-13 11:37] VITALS: BP 122/80; PULSE 76; O2SAT 98; BMI 30.1
--- OUTSIDE RECORDS SUMMARY | 2025-03-13 14:09 | XMS_ITS | Clinical Summary ---
Author Organization [facility]. Address [address] [place] [address] [place] [address] Phone Care Team Providers Care Apparatus Cleaner Name Role Phone Dean Osei DO Primary Care Provider [phone] Allergies Active Allergy Reactions Criticality Noted Date Comments Penicillins Other (see comments) 08/13/2020 Sulfa Antibiotics Other (see comments) 08/13/19 21 Medications Multiple Vitamin (MULTIVITAMIN ADULT PO) Take 1 capsule by mouth 1 (one) time each day Active Cyanocobalamin (Vitamin B 12) 100 MCG lozenge Take 1 capsule by mouth 1 (one) time each day Active Cholecalciferol 250 MCG (48380 UT) capsule Take 2 capsules by mouth [...] [facility] Visit [facility] [address] [phone] Abner Brown MD Stage 3a chronic kidney [...] [facility] Visit [facility] [address] [phone] Abner Brown MD [address] [phone] 01/24/2026 2:00 PM EDT [facility] [address] [phone] Abner Brown MD [address] [address] Health Maintenance Due Date Last [...] topic [place] [id number] Medicare [facility] Medicare Un[employer] Care Teams Apparatus Cleaner Relationship Specialty Start Date End Date Dean Osei DO [address] [place] [address] PCP - General 07/01/20
--- OUTSIDE RECORDS SUMMARY | 2025-03-13 14:09 | XMS_ITS | Patient Health Record ---
Author Organization [facility] Address [address] [place] [address] Support Name Relationship Address Phone Aminah Zepeda Guarantor Unknown [phone] Allergies Allergen (clinical drug ingredient) Drug/Non Drug Allergy documented on EMR Reaction Allergy Type Onset Date Status Penicillin Unknown Drug Allergy Active Reason For Referral No Information Medications Medication SIG (Take, Route, Frequency, Duration) Notes Start Date End Date Status Cyclobenzaprine HCl 5 MG 1 tablet as nee ded Orally Three times a day 07/26/2023 Active Olmesartan Medoxomil 40 MG Oral; Duration: 90 Days Active Social History Tobacco Use: Social History Observation Description Date Details (start date - stop date) Never Smoker NA - NA Tobacco Use/Smoking Question Answer Notes Are you a nonsmoker Problems Problem Type SNOMED Code ICD Code Onset Dates Problem Status W/U Status Risk Notes Problem Neck pain (41650278) Neck pain (M54.2) Active confirmed Problem Myofascial pain (581531487) Myofascial muscle pain (M79.18) Active confirmed Plan Of Treatment No Information Insurance Providers Payer Name Payer Address Payer Phone Subscriber Number Group Number Insured Name Patient Relationship to Insured Coverage Start Date Coverage End Date Medicare Part B [address] [place] Sharma [phone] [id number] Yolis Zepedara Self - patient is the insured [facility] Indemnity / Unicare (SECONDARY) [address] [place] [phone] [id number] Aminah Zepeda Self - patient is [...]
--- OUTSIDE RECORDS SUMMARY | 2025-03-13 14:09 | XMS_ITS | Continuity of Care Document ---
Author Organization [facility] Address [address] [place] [address] Phone [phone] Problems Active Problems Provider Date Thyroid nodule [...] SIG Qnty Indications Ordering Provider Date Rosuvastatin [id number] Tablets Take one tablet daily Dean Osei M.D. Olmesartan [id number] Tablets Take one tablet every evening Dean Osei M.D. Clotrimazole/Betametha sone Dipropionate1-0.05% Cream Apply twice daily to affected areas as needed Sebastian David M.D. Vital Signs Date Vital Result Comment 06/18/2022 3:36pm BP Systolic 124 mmHg BP Diastolic 80 mmHg Heart Rate 74 /min Height 64 inches Weight 169.38 lb BMI (Body Mass Index) 29.1 kg/m2 Procedures Date Code Description Status 12/25/2024 NSHOWOFF No Show Office Visit Complet ed Medical Devices Description No Information Available Encounters [...]
== END 2025-03-13 12:29 | disposition home or self-care (01) ==
LOC: HO.RHES 11:17
PROVIDERS: PCP Family Medicine; Visit Provider Student in an Organized Health Care Education/Training Program
DX: M35.3 Polymyalgia rheumatica (principal); M70.61 Trochanteric bursitis, right hip; M70.62 Trochanteric bursitis, left hip; Z79.620 Long term (current) use of immunosuppressive biologic; Z79.52 Long term (current) use of systemic steroids
CPT/HCPCS: 20610; 99214

== ENCOUNTER → 2025-03-13 11:16 | Outpatient (BNVA) | payer MEDICARE, OTHER, SELFPAY | PROVIDERS: PCP Family Medicine; Visit Provider Student in an Organized Health Care Education/Training Program | DX: M70.61 Trochanteric bursitis, right hip (principal); M70.62 Trochanteric bursitis, left hip; M35.3 Polymyalgia rheumatica; Z79.620 Long term (current) use of immunosuppressive biologic; Z79.52 Long term (current) use of systemic steroids | CPT/HCPCS: 20610; 99212; J1885 ==

== ENCOUNTER 2025-05-28 08:09 | Outpatient (REF) | payer MEDICARE, OTHER, SELFPAY ==
[2025-05-28 11:28] LABS: MANUAL DIFF FLAG NO
[2025-05-28 11:52] LABS: Hematocrit 39.7 % (37.0-47.0); Hemoglobin 13.2 g/dl (12.0-16.0); Imm Gran Abs Auto 0.02 X10*3/uL (0.00-0.03); Imm Gran Pct Auto 0.4 % (0.0-0.4); Lymphocytes Absolute Auto 2.3 X10*3/uL (1.2-4.9); Mean Corpuscular HGB Conc 33.2 g/dl (31.0-35.0); Mean Corpuscular Hemoglobin 32.2 pg (27.0-33.0); Mean Corpuscular Volume 96.8 fL (80.0-98.0); NRBC Abs Auto 0.000 X10*3/uL (0.0-0.012); NRBC Pct Auto 0.0 /100WBC (0.0-0.2); Platelet Count 172 X10*3/uL (160-400); Red Blood Count 4.10 X10*6/uL (4.20-5.50); White Blood Count 4.8 X10*3/uL (4.8-10.8)
[2025-05-28 11:55] LABS: Alanine Aminotransferase 34 U/L (0-31); Albumin Level 4.2 g/dL (3.5-5.0); Alkaline Phosphatase 50 U/L (39-117); Anion Gap 13 (12-20); Aspartate Amino Transferase 35 U/L (5-31); Blood Urea Nitrogen 23 mg/dL (9-16); Calcium 9.0 mg/dL (8.4-10.2); Carbon Dioxide 28 mmol/L (22-29); Chloride 105 mmol/L (96-108); Cholesterol 161 mg/dL (<200); Estimated Glomerular Filt Rate 59; HDL Cholesterol 55 mg/dL (>40); Potassium 4.0 mmol/L (3.3-5.1); Sodium 142 mmol/L (135-145); Total Protein 6.2 g/dL (6.5-8.0); Triglycerides 198 mg/dL (<150)
[2025-05-28 13:24] LABS: Erythrocyte Sedimentation Rate 4 MM/HR (0-20)
== END 2025-05-28 08:10 | disposition home or self-care (01) ==
LOC: HO.WFDLDS 08:09
PROVIDERS: Visit Provider Student in an Organized Health Care Education/Training Program
DX: Z79.899 Other long term (current) drug therapy (principal)
CPT/HCPCS: 36415; 80053; 80061; 85025; 85652; 86140

== ENCOUNTER 2025-05-30 11:06 | Outpatient (AMB) | payer MEDICARE, OTHER, SELFPAY ==
--- NOTE | 2025-05-30 11:22 | A.OFFVIS_ITS ---
Vital Signs 05/30/25 11:30 Height 5 ft 4 in Weight 173 lb 15.115 oz BMI 29.9 BP 130/92 H Blood Pressure Location Lt brachial Position Sitting Pulse 77 Pulse Source Pulse Oximeter Pulse Oximetry (%) 98 Oxygen Delivery Method Room Air Intake Visit Reasons: hip pain Intake Note: Patient presents for hip pain follow up and test results. Data Consultant Required: No Information Interpreted: non-clinical & clinical Accompanied by: Spouse Allergies penicillin G Allergy (Unknown, Verified 05/30/25 11:30) Hives seafood Allergy (Unknown, Verified 05/30/25 11:30) Unknown shellfish derived Allergy (Unknown, Verified 05/30/25 11:30) swelling,itch vancomycin Allergy (Unknown, Verified 05/30/25 11:30) facial redness Medication List - Last Reconciled 05/30/25 by Ashley Proctor MD metformin ER mg PO DAILY olmesartan 40 mg PO DAILY prednisone 10 mg (2 x 5 mg) PO DAILY 90 days rosuvastatin 10 mg PO BEDTIME sarilumab (Kevzara) 200 mg (1.14 mL) subcut Q2W HPI Comments Details: Patient is an 80-year-old female with hyperlipidemia who presents for follow up of PMR Interval History: Patient last seen 03/13/25 - On prednisone 10mg and Kevzara 200mg SC every 2 weeks - on month 3 of Kevzara - noting worsening right outer hip pain Today - On Kevzara 200mg SC every 2 weeks, prednisone 10mg daily - Feels like the Kevzara is finally working Rheumatologic History: Patient diagnosed with PMR in [place] after presenting with stiffness to her bilateral shoulders and elevated inflammatory markers. She establish care with a [facility] Rheumatology 08/2023. At that time she was given a steroid taper. Labs showed mildly elevated ESR at that time. She she completed her steroid taper over the next few months but had a relapse of her disease 02/2024. And restarted Prednisone 06/2024 Current Rheumatology Medication(s): Prednisone 10mg daily Kevzara 200mg SC every 2 weeks [facility] Medical History (Updated 05/30/25 @ 12:44 by Ashley Proctor MD) Transaminitis Tenosynovitis of hand Myalgia Impaired fasting glucose Hyperlipidemia, unspecified Hx: UTI (urinary tract infection) Hx of pulmonary valve stenosis Glaucoma Gilbert syndrome Fracture of toe of left foot Type 2 diabetes mellitus without complication Benign essential hypertension Atypical ductal hyperplasia of right breast Surgical History H/O lumpectomy Surgical procedure on lower extremity within past 6 months Hx of cholecystectomy H/O: hysterectomy History of colonoscopy Family History Mother Coronary artery disease Father Cancer of lung Social History Household Members: Spouse Alcohol intake: current Alcohol intake frequency: holidays/special occasions only Patient Tobacco Use Status: Former Tobacco user e-Cigarette/Vaping Use: Never Used Review of Systems Narrative Review of Systems Constitutional: Denies fever, chills, weight loss ENT: Denies vision changes, eye pain or eye redness, dental caries, dry mouth GI: Denies nausea, vomiting, diarrhea, abdominal pain, change in BM Pulm: Denies SOB, HOU, hemoptysis, wheezing Cards: Denies chest pain, palpitations Skin: Denies Raynaud's, rash, nail changes, photosensitivity, MAIL ROOM CLERK: Denies headaches, weakness, paresthesias, recurrent falls MSK: as per HPI All other systems reviewed and are unremarkable except noted above Physical Exam Exam Exam: Vital signs reviewed Physical Examination CONSTITUITIONAL Patient alert and cooperative. Well appearing and in no apparent painful distress MSK Hands * Right Hand: Able to make a fist. No swelling or tenderness to palpation of the MCPs, PIPs or DIPs. * Left Hand: Able to make a fist. No swelling or tenderness to palpation of the MCPs, PIPs or DIPs. * Herbedens nodes noted bilaterally Wrists * Right Wrist: Full ROM to flexion and extension. No swelling or TTP * Left Wrist: Full ROM to flexion and extension. No swelling or TTP Elbows * Right Elbow: Full ROM. No swelling or TTP. No TTP of the medial epicondyle. No TTP of the lateral epicondyle * Left Elbow: Full ROM. No swelling or TTP. No TTP of the medial epicondyle. No TTP of the lateral epicondyle Shoulders * Right shoulder: Full ROM. No swelling noted. No TTP of the AC joint. No TTP of the subacromial bursa. No TTP of the posterior shoulder * Left shoulder: Full ROM. No swelling noted. No TTP of the AC joint. No TTP of the subacromial bursa. No TTP of the posterior shoulder Knees * Right knee: No swelling noted. No TTP of the knee joint line. No TTP of pes anserine bursa * Left knee: No swelling noted. No TTP of the knee joint line. No TTP of pes anserine bursa. * Crepitations felt bilaterally Ankles * Right ankle: Good ankle dorsiflexion and plantar flexion. No swelling. No TTP of the ankle joint * Left ankle: Good ankle dorsiflexion and plantar flexion. No swelling. No TTP of the ankle joint Feet * Right foot: Negative squeeze test * Left foot: Negative squeeze test Tender points? * No tenderness to palpation of the bilateral trapezius, supraspinatus, anterior costochondral junctions, bilateral suboccipital muscle insertions SKIN No rashes Vital Signs: Last Vital Signs Pulse 77 05/30/25 11:30 BP 130/92 H 05/30/25 11:30 Pulse Ox 98 05/30/25 11:30 Oxygen Delivery Method Room Air 05/30/25 11:30 BMI result Body Mass Index 29.9 Results Reviewed Results Reviewed: Laboratory Tests 03/12/25 05/28/25 08:42 08:12 Sodium 142 Potassium 4.0 Chloride 105 Carbon Dioxide 28 BUN 23 H Creatinine 0.92 AST 28 35 H ALT 26 34 H C-Reactive Protein 1.19 H 0.91 H Triglycerides 198 H Cholesterol 161 LDL Cholesterol, Calc 67 HDL Cholesterol 55 Assessment & Plan Assessment & Plan (1) Polymyalgia rheumatica: Comment: PMR diagnosed in 2023 Started on steroids 08/2023-02/2024 had flare of her disease and prednisone was restarted Code(s): M35.3 - Polymyalgia rheumatica Category: Medical Plan: #PMR Patient is an 80-year-old female with polymyalgia rheumatica here today for follow up. Doing much better on Kevzara and prednisone 10mg Will start to slowly taper Plan - Prednisone 8mg daily - Kevzara 200mg SC every 2 weeks - RTC 3 months - Labs before visit: CBC, CMP, ESR, CRP, lipid panel (2) Transaminitis: Code(s): R74.01 - Elevation of levels of liver transaminase levels Category: Medical Plan: #Transamnitis Note is made of mildly elevated AST/ALT Will continue to monitor (3) Greater trochanteric bursitis of both hips: Code(s): M70.61 - Trochanteric bursitis, right hip; M70.62 - Trochanteric bursitis, left hip Category: Medical Plan: #Bilateral greater trochanteric bursitis Resolved (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 Benefits include decreased pain, improved mortality, improved quality of life Risks include LFT abnormalities, elevated triglycerides, GI perforations Contraindicated in a patient with history of diverticulitis Monitoring: CBC, CMP, triglycerides (5) extermination supervisor (current) use of systemic steroids: Code(s): Z79.52 - shelter (current) use of systemic steroids Plan: #Long-term Use of Steroids Discussed with patient the risks and benefits of steroid for managing the rheumatic condition Benefits include: - Reduced pain, improved mobility, increased participation in activities, and decreased progression of disease Risks include: - GI upset, potential ultrasound worsening or formation (especially in patients > 65 years old), elevated blood pressure/worsening hypertension, elevated blood sugar/worsening diabetes control, worsening of bone density, elevated lipids/worsening triglycerides, cataract formation, weight gain Recommended using proton pump inhibitors (PPIs) for the duration of steroid use to reduce the risk of gastric ulcers and vitamin-D daily to reduce the risk of osteoporosis Labs checked: A1c, T spot, hepatitis-B and C serologies Pneumocystis jiroveci prophylaxis: Patient with risk factors including steroids greater than 50 mg for more than 30 days, age greater than 60 years, and lung involvement from underlying rheumatic disease requires prophylaxis and will be given so Plan I spent 30 minutes reviewing the record and labs, taking a history, examining the patient, discussing the treatment plan, ordering diagnostic work up and documenting in the medical record Medications: Refilled sarilumab (Kevzara) 200 mg (1.14 mL) subcut Q2W 2.28 mL 5RF M35.3 - Polymyalgia rheumatica Discontinued prednisone Discontinued Reason: Doctor's Order 10 mg (2 x 5 mg) PO DAILY 90 days 180 tabs 1RF M35.3 - Polymyalgia rheumatica prednisone Take 4 tablets for 14 days then 3 tablets for 14 days then back to 2 tablets Discontinued Reason: Doctor's Order 5 mg PO DIRECTED 98 tabs 0RF M35.3 - Polymyalgia rheumatica Coding Level of Care Code Est Pt Level 4 (41678) Add On Problem Visit Only Diagnoses Polymyalgia rheumatica M35.3 Transaminitis R74.01 Greater trochanteric bursitis of both hips M70.61; M70.62 shelter current use of sarilumab Z79.620 extermination supervisor (current) use of systemic steroids Z79.52
[2025-05-30 11:30] VITALS: BP 130/92; PULSE 77; O2SAT 98; BMI 29.9
--- OUTSIDE RECORDS SUMMARY | 2025-05-30 17:43 | XMS_ITS | Continuity of Care Document ---
Author Organization [facility] Address [address] [place] [address] Phone [phone] Problems Active Problems Provider Date Thyroid nodule [...] SIG Qnty Indications Ordering Provider Date Rosuvastatin [id number] Tablets Take one tablet daily Dean Osei M.D. Olmesartan [id number] Tablets Take one tablet every evening Dean [...]
--- OUTSIDE RECORDS SUMMARY | 2025-05-30 17:43 | XMS_ITS | Patient Health Record ---
Author Organization [facility] Address [address] [place] [address] Support Name Relationship Address Phone Aminah Zepeda Guarantor Unknown [phone] Allergies Allergen (clinical drug ingredient) Drug/Non Drug [...] W/U Status Risk Notes Problem Neck pain (03428437) Neck pain (M54.2) Active confirmed Problem Myofascial pain (675957120) Myofascial muscle pain (M79.18) Active confirmed Plan Of Treatment No Information Insurance Providers Payer Name Payer Address Payer Phone Subscriber Number Group Number Insured Name Patient Relationship to Insured Coverage Start Date Coverage End Date Medicare Part B [address] RADHA Sharma [phone] [id number] Yolis Zepedara Self - patient is the insured [facility] [address] Indemnity / [employer] (SECONDARY) [address] [place]INS [phone] [id number] Aminah Zepeda Self - patient is [...]
--- OUTSIDE RECORDS SUMMARY | 2025-05-30 17:43 | XMS_ITS | Clinical Summary ---
Author Organization [facility] Address [address] [place] [address] MICHAEL ARIANA [address] Phone Care Team Providers Care Advisor Consultant Name Role Phone Dean Osei DO Primary Care Provider [phone] Allergies Active Allergy Reactions Criticality Noted Date Comments Penicillins Other (see comments) 08/13/2020 Sulfa Antibiotics Other (see comments) 08/13/19 21 Medications Multiple Vitamin (MULTIVITAMIN ADULT PO) Take 1 capsule by mouth 1 (one) time each day Active Cyanocobalamin (Vitamin B 12) 100 MCG lozenge Take 1 capsule by mouth 1 (one) time each day Active Cholecalciferol 250 MCG (47[address] UT) capsule Take 2 capsules by mouth [...] Office Visit [facility] [address] [id number] Abner Brown MD [facility] [address] [phone] 01/24/2026 2:00 PM EDT Office Visit [facility] [address] [address] Abner Brown MD [facility] [address] [id number] Health Maintenance Due Date Last Done Comments [...] age to complete this topic Insurance Medicare [facility] Medicare [facility] Care Teams Advisor Consultant Relationship Specialty Start Date End Date Dean Osei DO [address] [place] [address] PCP - General 07/01/20
== END 2025-05-30 12:49 | disposition home or self-care (01) ==
LOC: HO.RHES 11:07
PROVIDERS: PCP Family Medicine; Visit Provider Student in an Organized Health Care Education/Training Program
DX: M35.3 Polymyalgia rheumatica (principal); R74.01 Elevation of levels of liver transaminase levels; M70.61 Trochanteric bursitis, right hip; M70.62 Trochanteric bursitis, left hip; Z79.620 Long term (current) use of immunosuppressive biologic; Z79.52 Long term (current) use of systemic steroids
CPT/HCPCS: 99214; G2211

== ENCOUNTER → 2025-05-30 11:06 | Outpatient (BNVA) | payer MEDICARE, OTHER, SELFPAY | PROVIDERS: PCP Family Medicine; Visit Provider Student in an Organized Health Care Education/Training Program | DX: M35.3 Polymyalgia rheumatica (principal); M70.61 Trochanteric bursitis, right hip; M70.62 Trochanteric bursitis, left hip; Z79.620 Long term (current) use of immunosuppressive biologic; Z79.52 Long term (current) use of systemic steroids | CPT/HCPCS: 99212 ==